=== PATIENT | female | born 1945 ===

== ENCOUNTER 2016-12-15 10:39 | Emergency (ER) | payer MEDICAID ==
[2016-12-15 10:44] VITALS: BP 114/62; PULSE 71; TEMP 97; O2SAT 99; BMI 27.8
--- NOTE | 2016-12-15 11:17 | ED PDOC ---
HPI: General Adult Time Seen by Provider: 12/15/16 11:00 Chief Complaint (Nursing): Abdominal Pain Chief Complaint (Provider): diarrhea, abd pain History Per: Patient, Associate Data Scientist (JACK Batres at bedside for translation) Additional Complaint(s): Patient states that she has had watery, non-bloody diarrhea for the past 2 days with mild associated abdominal pain. Patient denies any fever or chills, she denies any associated nausea or vomiting. Patient denies any consumption of food that could have caused stomach upset. No recent travel or known sick contacts. Patient was seen on November 29 for leg pain and had diarrhea and vomiting at that time. She states the vomiting has resolved at this point but the diarrhea has been persistent. Patient has been taking Keflex since November 29 secondary to right lower extremity cellulitis. Past Medical History Reviewed: Historical Data Vital Signs: Last Vital Signs Temp 97 F L 12/15/16 10:43 Pulse 71 12/15/16 10:43 Resp BP 114/62 12/15/16 10:43 Pulse Ox 99 12/15/16 15:30 - Medical History PMH: Anemia, COPD, Diabetes, Deep Vein Thrombosis, Gastritis, HIV, HTN, Hypercholesterolemia, Hyperlipidemia, Hypothyroidism, Chronic Kidney Disease - Surgical History Surgical History: Appendectomy Other surgeries: cataract surgery - Family History Family History: States: No Known Family Hx - Living Arrangements Living Arrangements: With Family - Social History Current smoker - smoking cessation education provided: No Alcohol: None Drugs: Denies - Home Medications Home Medications: Ambulatory Orders Medication Instructions Recorded Atorvastatin [Lipitor] 10 mg PO HS #0 tab 07/15/16 Enalapril Maleate [Vasotec] 5 mg PO DAILY #0 tab 07/15/16 Levothyroxine [Synthroid] 50 mcg PO DAILY #0 tab 07/15/16 Metformin HCl [Glucophage] 500 mg PO BID #0 tablet 07/15/16 Multivit, Iron, Min #5, FA 1 tab PO DAILY #0 tablet 07/15/16 [Strovite Forte Caplet] Emtricita/rilpivir/tenofovir 1 tab PO DAILY 10/08/16 [Complera 200 mg-25 mg-300 mg] Omeprazole 40 mg PO DAILY 10/08/16 Warfarin [Coumadin] 2 mg PO HS #0 10/18/16 Cephalexin [Keflex] 500 mg PO QID #28 capsule 11/30/16 Warfarin [Coumadin] 2 mg PO HS #14 tab 11/30/16 - Allergies Allergies/Adverse Reactions: Allergies Allergy/AdvReac Type Severity Reaction Status Date / Time No Known Allergies Allergy Verified 12/15/16 11:03 Review of Systems ROS Statement: Except As Marked, All Systems Reviewed And Found Negative Constitutional: Negative for: Fever, Chills Cardiovascular: Negative for: Chest Pain Respiratory: Negative for: Cough, Shortness of Breath Gastrointestinal: Positive for: Abdominal Pain, Diarrhea (watery, non bloody). Negative for: Nausea, Vomiting Neurological: Negative for: Headache, Dizziness Physical Exam - Reviewed Nursing Documentation Reviewed: Yes Vital Signs Reviewed: Yes - Physical Exam Appears: Positive for: Well, Non-toxic, No Acute Distress Skin: Negative for: Rash Cardiovascular/Chest: Positive for: Regular Rate, Rhythm Respiratory: Positive for: Normal Breath Sounds Gastrointestinal/Abdominal: Positive for: Soft, Tenderness (mild diffuse tenderness with no rebound or guarding, no distention) Back: Negative for: L CVA Tenderness, R CVA Tenderness Extremity: Positive for: Normal ROM, Other (Chronic venous stasis dermatitis to right lower extremity, no calf swelling or tenderness, normal distal sensation, no acute infection noted) Neurologic/Psych: Positive for: Alert, Oriented - Laboratory Results Result Diagrams: 12/15/16 11:45 12/15/16 11:45 Urine dip results: Negative for: Leukocyte Esterase, Blood, Nitrate, Ketones, Glucose, Bilirubin, Protein - ECG O2 Sat by Pulse Oximetry: 99 Pulse Ox Interpretation: Normal - Other Rad CT abd and pelvis X-Ray: Read By Radiologist X-Ray Interpretation: no acute finding Medical Decision Making Medical Decision Makin71 year old with diarrhea and abd pain Plan: CBC CMP Lipase U dip CT abd and pelvis with IV contrast Patient is aware of all diagnostic testing results, all questions answered. Communication with the patient was facilitated with JACK Batres, certified nursery attendant. Patient was given dietary instructions for relief of diarrhea and was instructed to drink plenty of fluids. Patient did not have bowel movement in ED, stool sample was unable to be ordered. She was referred to clinic for follow-up. Patient is aware she can return to ED any time if acutely worse. Disposition - Clinical Impression Clinical Impression: Diarrhea - Patient ED Disposition Is Patient to be Admitted: No Counseled Patient/Family Regarding: Studies Performed, Diagnosis, Need For Followup - Disposition Referrals: [facility] [Outside] Disposition: Routine/Home Disposition Time: 16:15 Condition: STABLE Additional Instructions: Drink plenty fluids. Follow BRAT diet - bananas, rice, apples, toast - for relief of diarrhea. Follow-up with clinic in 2-3 days or return to ED at any time if acutely worse. Instructions: Acute Diarrhea (ED) Print Language: NIUEAN Results - Lab Results Lab Results: 12/15/16 12/15/16 13:13 11:45 WBC 4.2 L RBC 3.85 Hgb 11.2 L Hct 34.3 MCV 89.1 D MCH 29.2 MCHC 32.8 L RDW 14.0 Plt Count 211 MPV 9.9 Neut % (Auto) 50.2 Lymph % (Auto) 39.1 Lucas % (Auto) 8.1 Eos % (Auto) 2.0 Baso % (Auto) 0.6 Neut # 2.1 Lymph # 1.6 Lucas # 0.3 Eos # 0.1 Baso # 0.0 PT 18.7 H INR 1.80 H APTT 35.5 H Sodium 141 Potassium 4.7 Chloride 101 Carbon Dioxide 26 Anion Gap 19 BUN 13 Creatinine 0.8 Est GFR ( Amer) > 60 Est GFR (Non-Af Amer) > 60 Random Glucose 148 H Calcium 9.3 Total Bilirubin 0.5 AST 44 H D ALT 32 Alkaline Phosphatase 91 Total Protein 7.5 Albumin 4.1 Globulin 3.4 Albumin/Globulin Ratio 1.2 Lipase 67
[2016-12-15] MEDS ORDERED: Sodium Chloride 0.9% 1,000 ML IV STA (11:28)
[2016-12-15 12:00] LABS: BASO % 0.6 % (0.0-2.0); EOS # 0.1 K/uL (0.0-0.7); HEMATOCRIT 34.3 % (34.0-47.0); LYMPH # 1.6 K/uL (1.0-4.3); LYMPH % 39.1 % (20.0-40.0); MEAN CORPUSCULAR HEMOGLOBIN 29.2 pg (27.0-31.0); MEAN CORPUSCULAR HGB CONC 32.8 g/dL (33.0-37.0); MEAN PLATELET VOLUME 9.9 fl (7.2-11.7); MONO # 0.3 K/uL (0.0-0.8); MONO % 8.1 % (0.0-10.0); NEUT # 2.1 K/uL (1.8-7.0); NEUT % 50.2 % (50.0-75.0); NRBC % 0.1 % (0.0-0.0); WHITE BLOOD COUNT 4.2 K/uL (4.8-10.8)
[2016-12-15 12:14] LABS: MEAN CELL VOLUME 89.1 fl (81.0-99.0)
[2016-12-15 12:26] LABS: ALB/GLOB RATIO 1.2 (1.0-2.1); ALKALINE PHOSPHATASE 91 U/L (38-126); ALT/SGPT 32 U/L (9-52); AST/SGOT 44 U/L (14-36); BILIRUBIN,TOTAL 0.5 mg/dl (0.2-1.3); BLOOD UREA NITROGEN 13 mg/dl (7-17); CALCIUM 9.3 mg/dL (8.4-10.2); CARBON DIOXIDE 26 mmol/L (22-30); CHLORIDE 101 mmol/L (98-107); GFR AFRICAN-AMERICAN > 60; GLUCOSE,RANDOM 148 mg/dL (65-105); LIPASE 67 U/L (23-300); POTASSIUM 4.7 MMOL/L (3.6-5.0); SODIUM 141 mmol/l (132-148); TOTAL PROTEIN 7.5 G/DL (6.3-8.2)
[2016-12-15 13:34] LABS: PARTIAL THROMBOPLASTIN TIME 35.5 SECONDS (23.3-32.5)
[2016-12-15] MEDS ORDERED: Iohexol 300 100 ML IJ ONE (15:26)
[2016-12-15] MEDS ORDERED: Sodium Chloride 0.9% 50 ML IV ONE (15:26)
--- NOTE | 2016-12-15 16:13 | CT ---
PROCEDURE: CT Abdomen and Pelvis with contrast HISTORY: abd pain, diarrhea COMPARISON: None. TECHNIQUE: Contrast dose: 90 cc of Omni 300 Radiation dose: Total exam DLP = 557 mGy-cm. FINDINGS: LOWER THORAX: Unremarkable. LIVER: Unremarkable. No gross lesion or ductal dilatation. GALLBLADDER AND BILE DUCTS: Unremarkable. PANCREAS: Unremarkable. No gross lesion or ductal dilatation. SPLEEN: Unremarkable. ADRENALS: Unremarkable. No mass. KIDNEYS AND URETERS: Unremarkable. No hydronephrosis. No solid mass. VASCULATURE: Unremarkable. No aortic aneurysm. The aorta is calcified but normal in size BOWEL: Unremarkable. No obstruction. No gross mural thickening. APPENDIX: Normal appendix. PERITONEUM: Unremarkable. No free fluid. No free air. LYMPH NODES: There is a 12 mm lymph node adjacent to the IVC and the right kidney on image 71. BLADDER: Unremarkable. REPRODUCTIVE: Unremarkable. BONES: There is a mild disc bulge at L4-5 OTHER FINDINGS: None. IMPRESSION: No acute intra-abdominal findings
== END 2016-12-15 16:35 | disposition home or self-care (01) ==
LOC: H.ER 10:39
DX: R19.7 Diarrhea, unspecified (principal); E11.22 Type 2 diabetes mellitus with diabetic chronic kidney disease; E78.00 Pure hypercholesterolemia, unspecified; Z79.01 Long term (current) use of anticoagulants; Z86.718 Personal history of other venous thrombosis and embolism

== ENCOUNTER 2017-01-12 09:57 | Inpatient (IN) | payer MEDICAID ==
[2017-01-12 09:57] VITALS: BMI 27.8
[2017-01-12] MEDS ORDERED: Piperacillin/Tazobact 3.375 GM in Sodium Chloride 0.9% 100 ML IVPB STA (11:40)
[2017-01-12] MEDS ORDERED: Piperacillin/Tazobact 3.375 gm Inj IVPB ONE (12:14)
[2017-01-12 12:21] LABS: VENOUS BLOOD GAS BASE EXCESS 2.4 mmol/L (0.0-2.0); VENOUS BLOOD GAS PCO2 51 mmHg (40-60); VENOUS BLOOD PH 7.36 (7.32-7.43)
--- NOTE | 2017-01-12 12:22 | ED PDOC ---
HPI: General Adult Time Seen by Provider: 01/12/17 10:28 Chief Complaint (Nursing): Lower Extremity Problem/Injury Additional Complaint(s): Pt. states for the past 3 days she's had increasing RLE pain and discharge. Reports she does have chronic pain to both legs but R > L. Reports that today she saw Dr. Morales who instructed her to come to ED. Pt. does have a hx of DVT to both legs. Denies fever, trauma, chest pain, SOB, hemoptysis, palpitations. Past Medical History Reviewed: Historical Data, Nursing Documentation, Vital Signs Vital Signs: Last Vital Signs Temp 98.7 F 01/12/17 16:59 Pulse 84 01/12/17 16:59 Resp 18 01/12/17 16:59 BP 135/70 01/12/17 16:59 Pulse Ox 98 01/12/17 16:59 - Medical History PMH: Anemia, COPD, Diabetes, Deep Vein Thrombosis, Fractures, Gastritis, HIV, HTN, Hypercholesterolemia, Hyperlipidemia, Hyperthyroidism, Hypothyroidism, Kidney Stones, Chronic Kidney Disease, Sexually Transmitted Disease Denies: Asthma, Bronchitis - Surgical History Surgical History: Appendectomy - Family History Family History: States: No Known Family Hx - Immunization History Hx Tetanus Toxoid Vaccination: Yes Hx Influenza Vaccination: Yes Hx Pneumococcal Vaccination: Yes - Home Medications Home Medications: Ambulatory Orders Medication Instructions Recorded Aspirin [Ecotrin] 81 mg PO DAILY 01/12/17 Atorvastatin [Lipitor] 10 mg PO DAILY 01/12/17 Cilostazol [Pletal] 50 mg PO DAILY 01/12/17 Emtricita/rilpivir/tenofovir 1 tab PO HS 01/12/17 [Complera 200 mg-25 mg-300 mg] Enalapril Maleate [Vasotec] 5 mg PO DAILY 01/12/17 Gabapentin [Neurontin] 300 mg PO BID 01/12/17 Levothyroxine [Synthroid] 50 mcg PO DAILY 01/12/17 Multivitamin [Multi-Vitamin Daily] 1 tab PO DAILY 01/12/17 Olopatadine HCl [Pataday] 1 drop EACHEYE BID 01/12/17 Omeprazole [Omeprazole] 20 mg PO DAILY 01/12/17 Warfarin [Coumadin] 2 mg PO HS 01/12/17 metFORMIN [glucOPHAGE] 500 mg PO BID 01/12/17 - Allergies Allergies/Adverse Reactions: Allergies Allergy/AdvReac Type Severity Reaction Status Date / Time No Known Allergies Allergy Verified 01/12/17 10:20 Review of Systems ROS Statement: Except As Marked, All Systems Reviewed And Found Negative Musculoskeletal: Positive for: Leg Pain Physical Exam - Reviewed Nursing Documentation Reviewed: Yes Vital Signs Reviewed: Yes - Physical Exam Appears: Positive for: Well, Non-toxic, No Acute Distress Head Exam: Positive for: ATRAUMATIC, NORMAL INSPECTION, NORMOCEPHALIC Skin: Positive for: Normal Color, Warm. Negative for: Rash Eye Exam: Positive for: EOMI, Normal appearance, PERRL ENT: Positive for: Normal ENT Inspection Neck: Positive for: Normal, Painless ROM Cardiovascular/Chest: Positive for: Regular Rate, Rhythm Respiratory: Positive for: CNT, Normal Breath Sounds Pulses-Dorsalis Pedis (L): 2+ Pulses-Dorsalis Pedis (R): 2+ Gastrointestinal/Abdominal: Positive for: Normal Exam, Bowel Sounds, Soft Back: Positive for: Normal Inspection Extremity: Positive for: Normal ROM, Other (RLE with diffuse erythema but non- circumferential with clear discharge noted; LLE with chronic changes but no erythema ). Negative for: Calf Tenderness Neurologic/Psych: Positive for: Alert, Oriented - Laboratory Results Result Diagrams: 01/12/17 12:00 01/12/17 12:00 - ECG O2 Sat by Pulse Oximetry: 96 - Progress ED Course And Treament: Case d/w Dr. Morales who states when he saw patient last week R leg had no erythema or discharge. Labs ordered. Zosyn IV, vancomycin IV ordered. Wound culture, blood culture ordered x 2. Duplex b/l lower extremity ordered. Case d/w FP resident and arrangements made for admission. Disposition - Clinical Impression Clinical Impression: Cellulitis - Patient ED Disposition Is Patient to be Admitted: Yes - Disposition Disposition Time: 17:34 Condition: STABLE
[2017-01-12 12:48] LABS: HEMATOCRIT 35.4 % (34.0-47.0); MEAN CELL VOLUME 89.3 fl (81.0-99.0); MEAN CORPUSCULAR HEMOGLOBIN 28.9 pg (27.0-31.0); MEAN CORPUSCULAR HGB CONC 32.4 g/dL (33.0-37.0); MEAN PLATELET VOLUME 9.4 fl (7.2-11.7); NEUT % 41.9 % (50.0-75.0); RED CELL DISTRIBUTION WIDTH 14.4 % (11.5-14.5); WHITE BLOOD COUNT 3.7 K/uL (4.8-10.8)
[2017-01-12 12:49] LABS: BASO % 0.8 % (0.0-2.0); EOS # 0.3 K/uL (0.0-0.7); EOS % 6.8 % (0.0-4.0); LYMPH # 1.6 K/uL (1.0-4.3); LYMPH % 42.2 % (20.0-40.0); MONO # 0.3 K/uL (0.0-0.8); MONO % 8.3 % (0.0-10.0); NEUT # 1.6 K/uL (1.8-7.0); NRBC % 0.1 % (0.0-0.0)
[2017-01-12 12:57] LABS: ALB/GLOB RATIO 1.1 (1.0-2.1); ALKALINE PHOSPHATASE 108 U/L (38-126); ALT/SGPT 27 U/L (9-52); AST/SGOT 57 U/L (14-36); BILIRUBIN,TOTAL 0.7 mg/dl (0.2-1.3); BLOOD UREA NITROGEN 14 mg/dl (7-17); CARBON DIOXIDE 25 mmol/L (22-30); CHLORIDE 102 mmol/L (98-107); GFR AFRICAN-AMERICAN > 60; GLUCOSE,RANDOM 102 mg/dL (65-105); SODIUM 138 mmol/l (132-148); TOTAL PROTEIN 8.5 G/DL (6.3-8.2)
[2017-01-12 13:01] LABS: POTASSIUM 4.4 MMOL/L (3.6-5.0)
[2017-01-12] MEDS ORDERED: Vancomycin 1 g Inj ONE (13:06)
--- NOTE | 2017-01-12 13:15 | RAD ---
HISTORY: Leg swelling COMPARISON: No prior. TECHNIQUE: Chest PA and lateral FINDINGS: LUNGS: There is pulmonary hyperinflation and peribronchial thickening with chronic changes in both lungs. There is no focal consolidation. PLEURA: No significant pleural effusion identified. No pneumothorax apparent. CARDIOVASCULAR: Normal. OSSEOUS STRUCTURES: No significant abnormalities. VISUALIZED UPPER ABDOMEN: Normal. OTHER FINDINGS: None. IMPRESSION: No active pulmonary disease. COPD.
--- NOTE | 2017-01-12 18:03 | CP.PCM.HP ---
History of Present Illness - History of Present Illness History of Present Illness: 71yo F with PMHx HIV, HTN, DM, Hypothyroidism, DVT, PVD, chronic venous insufficiency admitted for cellulitis in both lower ext. Seen by PCP today and transferred to ED for evaluation. c/o BLE pain, no radiation, duration x4 days, white d/c from E, a/w subjective fever, nausea, vomiting x2. Tolerating PO, denies current n/v. Denies chest pain, SOB, palpitations, focal weakness, recent trauma. Recent HIV labs 11/30/16, viral load undetectable, CD4 554. PMHx: as above Allergies: NKDA Surgical hx: Appendectomy FHx: Diabetes Mellitus Social Hx: former smoker quited 25 years ago. Denies EtOH, drugs. PMD: Dr Morales ED Course: VSS CBC, WBC 3.7 VBG pCO2/pO2/pH 51/21/7.36 LA 1.5 CMP, BNP U/S Extremety: No evidence of DVT Vanco 1g IV x1 Zosyn 3.375 mg IV x1 blood cx wound cx Present on Admission - Present on Admission Any Indicators Present on Admission: Yes History of DVT/PE: Yes Review of Systems - Constitutional Constitutional: absent: Chills, Fever - Cardiovascular Cardiovascular: absent: Chest Pain - Respiratory Respiratory: absent: Dyspnea - Gastrointestinal Gastrointestinal: absent: Abdominal Pain, Diarrhea, Nausea, Vomiting - Genitourinary Genitourinary: absent: Dysuria, Hematuria - Musculoskeletal Musculoskeletal: absent: Back Pain Past Patient History - Infectious Disease Hx of Infectious Diseases: None - Past Medical History & Family History Past Medical History?: Yes - Past Social History Smoking Status: Never Smoked - CARDIAC Hx Hypercholesterolemia: Yes Hx Hypertension: Yes - PULMONARY Hx Asthma: No Hx Bronchitis: No Hx Chronic Obstructive Pulmonary Disease (COPD): Yes - NEUROLOGICAL Hx Neurological Disorder: No - HEENT Hx HEENT Problems: No - RENAL Hx Chronic Kidney Disease: Yes Hx Kidney Stones: Yes - ENDOCRINE/METABOLIC Hx Hyperthyroidism: Yes Hx Hypothyroidism: Yes - HEMATOLOGICAL/ONCOLOGICAL Hx Anemia: Yes Hx Human Immunodeficiency Virus (HIV): Yes - INTEGUMENTARY Hx Dermatological Problems: No - MUSCULOSKELETAL/RHEUMATOLOGICAL Hx Fractures: Yes - GASTROINTESTINAL Hx Gastritis: Yes - GENITOURINARY/GYNECOLOGICAL Hx Sexually Transmitted Disorders: Yes - PSYCHIATRIC Hx Psychophysiologic Disorder: No Hx Substance Use: No - SURGICAL HISTORY Hx Appendectomy: Yes - ANESTHESIA Hx Anesthesia: Yes Hx Anesthesia Reactions: No Hx Malignant Hyperthermia: No Meds Allergies/Adverse Reactions: Allergies Allergy/AdvReac Type Severity Reaction Status Date / Time No Known Allergies Allergy Verified 01/12/17 10:20 Physical Exam - Constitutional Appears: Non-toxic, No Acute Distress - Eye Exam Eye Exam: Normal appearance - ENT Exam ENT Exam: Mucous Membranes Moist - Neck Exam Neck exam: Positive for: Normal Inspection - Respiratory Exam Respiratory Exam: Clear to Auscultation Bilateral - Cardiovascular Exam Cardiovascular Exam: REGULAR RHYTHM - GI/Abdominal Exam GI & Abdominal Exam: Normal Bowel Sounds, Soft - Extremities Exam Extremities exam: Positive for: tenderness, pedal pulses present Additional comments: RLE erythema, minimal induration, no fluctuance, no drainage. area marked includes erythema and chronic skin changes - Neurological Exam Neurological exam: Alert, Oriented x3 - Skin Skin Exam: Dry, Warm Results - Vital Signs Recent Vital Signs: Last Vital Signs Temp 98.7 F 01/12/17 16:59 Pulse 84 01/12/17 16:59 Resp 18 01/12/17 16:59 BP 135/70 01/12/17 16:59 Pulse Ox 98 01/12/17 16:59 - Labs Result Diagrams: 01/12/17 12:00 01/12/17 12:00 Labs: Laboratory Results - last 24 hr 01/12/17 01/12/17 01/12/17 12:00 12:00 12:16 WBC 3.7 L RBC 3.96 Hgb 11.5 L Hct 35.4 MCV 89.3 MCH 28.9 MCHC 32.4 L RDW 14.4 Plt Count 237 MPV 9.4 Neut % (Auto) 41.9 L Lymph % (Auto) 42.2 H [place] % (Auto) 8.3 Eos % (Auto) 6.8 H Baso % (Auto) 0.8 Neut # 1.6 L Lymph # 1.6 [place] # 0.3 Eos # 0.3 Baso # 0.0 pO2 21 L VBG pH 7.36 VBG pCO2 51 VBG HCO3 25.0 VBG Total CO2 30.4 H VBG O2 Sat (Calc) 41.4 VBG Base Excess 2.4 H VBG Potassium 3.9 Glucose 107 H Lactate 1.5 FiO2 21.0 Sodium 138 139.0 Potassium 4.4 Chloride 102 104.0 Carbon Dioxide 25 Anion Gap 15 BUN 14 Creatinine 0.8 Est GFR ( Amer) > 60 Est GFR (Non-Af Amer) > 60 Random Glucose 102 Calcium 10.0 Total Bilirubin 0.7 AST 57 H D ALT 27 Alkaline Phosphatase 108 NT-Pro-B Natriuret Pep 81.7 Total Protein 8.5 H Albumin 4.4 Globulin 4.1 H Albumin/Globulin Ratio 1.1 Venous Blood Potassium 3.9 Assessment & Plan - Assessment and Plan (Free Text) Assessment: 70 yo female with pmhx of HIV, chronic PVD, diabetes will be admitted for right lower ext cellulitis. 1) Right lower ext cellulitis -Hx/o stasis dermatitis and chronic venous insufficiency -vancomycin 1gm q12 & zosyn 3.375gm q6 daily -b/l ext US : No DVT -f/u blood cx, wound cx -marked area with marker 2)Peripheral vascular disease -pletal 3)HIV, not AIDS -11/30/16: CD4 554, viral load undetected -c/w complera 4)Type 2 diabetes, controlled -11/30/16 HgbA1c 7 -accuchecks -hold metformin -LDSS 5) HTN, controlled -c/w enalapril 6)Hypothyroidism -11/30/16 TSH 0.79 -c/w levothyroxine 7)hx of GERD -c/w protonix 20mg po daily 8) hx of DVT -c/w warfarin 2mg po daily -PT/INR/PTT 9) HLD -statin 10) DVT ppx -coumadin Decision To Admit - Pt Status Changed To: Hospital Disposition Of: Observation - . Bed Request Type: Med/Surg Admitting Physician: Malia Clay
--- NOTE | 2017-01-12 18:35 | US ---
PROCEDURE: Bilateral lower extremity venous duplex Doppler. HISTORY: b/l leg pain COMPARISON: None available. TECHNIQUE: Bilateral common femoral, superficial femoral, popliteal and posterior tibial veins were evaluated. Flow was assessed with color Doppler, compressibility, assessment of phasic flow and augmentation response. FINDINGS: COMMON FEMORAL VEIN: Right CFV: Unremarkable. Left CFV: Unremarkable. SUPERFICIAL FEMORAL VEIN: Right SFV: Unremarkable. Left SFV: Unremarkable. POPLITEAL VEIN: Right Popliteal: Unremarkable. Left Popliteal: Unremarkable. POSTERIOR TIBIAL VEIN: Right PTV: Unremarkable. Left PTV: Unremarkable. OTHER FINDINGS: None. IMPRESSION: No evidence of deep venous thrombosis.
[2017-01-12] MEDS ORDERED: Dextrose 50% SYRINGE Inj (50 ml) IVP PRN (18:40)
[2017-01-12] MEDS ORDERED: Glucagon Recombinant 1 mg Inj IM PRN ×2 (18:40)
[2017-01-12] MEDS ORDERED: Dextrose 50% SYRINGE Inj (50 ml) IV PRN (18:40)
[2017-01-12 20:20] LABS: PARTIAL THROMBOPLASTIN TIME 35.3 SECONDS (23.3-32.5)
[2017-01-12] MEDS ORDERED: COMPLERA PO SCH (22:00)
[2017-01-12] MEDS: Insulin Regular 100 units/ml SC SCH (22:00)
[2017-01-12] MEDS: Oxycodone/Acetaminophen 5/325 mg Tab PO PRN (23:36)
[2017-01-12] MEDS: Piperacillin/Tazobact 3.375 GM in Sodium Chloride 0.9% 100 ML IVPB SCH (23:38)
[2017-01-13] MEDS: Piperacillin/Tazobact 3.375 GM in Sodium Chloride 0.9% 100 ML IVPB SCH ×4 (04:38→22:03)
[2017-01-13] MEDS: Levothyroxine 50 MCG TAB PO SCH (06:25)
[2017-01-13] MEDS: Insulin Regular 100 units/ml SC SCH ×4 (06:29→22:04)
[2017-01-13 08:08] LABS: BASO % 0.8 % (0.0-2.0); EOS # 0.3 K/uL (0.0-0.7); EOS % 7.9 % (0.0-4.0); HEMATOCRIT 35.2 % (34.0-47.0); LYMPH # 1.5 K/uL (1.0-4.3); LYMPH % 45.9 % (20.0-40.0); MEAN CORPUSCULAR HEMOGLOBIN 28.4 pg (27.0-31.0); MEAN CORPUSCULAR HGB CONC 32.3 g/dL (33.0-37.0); MEAN PLATELET VOLUME 9.2 fl (7.2-11.7); MONO # 0.3 K/uL (0.0-0.8); MONO % 10.2 % (0.0-10.0); NEUT # 1.1 K/uL (1.8-7.0); NEUT % 35.2 % (50.0-75.0); RED CELL DISTRIBUTION WIDTH 14.3 % (11.5-14.5); WHITE BLOOD COUNT 3.2 K/uL (4.8-10.8)
--- NOTE | 2017-01-13 08:15 | CP.PCM.PN ---
Subjective - Date & Time of Evaluation Date of Evaluation: 01/13/17 Time of Evaluation: 07:05 - Subjective Subjective: The patient is a 71 y/o woman w/ PMHx of HIV (not AIDS), HTN, DM type 2, Hypothyroidism, DVT, PVD, chronic venous insufficiency admitted for cellulitis in both lower extremities. The patient was seen this morning. There are no acute events overnight. The patient is not in acute distress. The patient reports improvement of pain in her legs. The patient complains of back pain. The patient goes out of bed to chair. The patient has no other complaints. Objective - Vital Signs/Intake and Output Vital Signs (last 24 hours): Temp Pulse Resp BP Pulse Ox 97.9 F 66 16 123/86 97 01/12/17 21:31 01/12/17 21:31 01/12/17 21:31 01/12/17 21:31 01/12/17 21:31 - Medications Medications: Current Medications Acetaminophen (Tylenol 325mg Tab) 650 mg PO Q6 PRN PRN Reason: Pain, Mild (1-3) Aspirin (Ecotrin) 81 mg PO DAILY [facility] Atorvastatin Calcium (Lipitor) 10 mg PO DAILY [facility] Cilostazol (Pletal) 50 mg PO DAILY [facility] Dextrose (Dextrose 50% Inj) 0 ml IVP STAT PRN; Protocol PRN Reason: Hypoglycemia Protocol Dextrose (Dextrose 50% Inj) 0 ml IV STAT PRN; Protocol PRN Reason: Hyglycemia Protocol Dextrose (Glutose 15) 0 gm PO ONCE PRN; Protocol PRN Reason: Hypoglycemia Protocol Enalapril Maleate (Vasotec) 5 mg PO DAILY [facility] Gabapentin (Neurontin) 300 mg PO BID [facility] Glucagon (Glucagen Diagnostic Kit) 0 mg IM STAT PRN; Protocol PRN Reason: Hypoglycemia Protocol Glucagon (Glucagen Diagnostic Kit) 0 mg IM STAT PRN; Protocol PRN Reason: Hypoglycemia Protocol Home Med (Emtricita/Rilpivir/Tenofovir) 1 tab PO HS [facility] Home Med (Olopatadine Hcl [Pataday]) 1 drop EACHEYE BID BABAR Piperacillin Sod/Tazobactam (Sod 3.375 gm/ Sodium Chloride) 100 mls @ 100 mls/ hr IVPB Q6 [facility] Last Admin: 01/13/17 04:38 Dose: 100 mls/hr Vancomycin HCl 1 gm/ Sodium (Chloride) 250 mls @ 166.667 mls/hr IVPB Q12@0100, 1300 [facility] Last Admin: 01/13/17 00:43 Dose: 166.667 mls/hr Insulin Human Regular (Humulin R) 0 units SC ACHS [facility] PRN Reason: Protocol Last Admin: 01/13/17 06:29 Dose: Not Given Levothyroxine Sodium (Synthroid) 50 mcg PO DAILY@0630 [facility] Last Admin: 01/13/17 06:25 Dose: 50 mcg Multivitamins/Minerals (Therapeutic-M Tab) 1 tab PO DAILY [facility] Oxycodone/Acetaminophen (Percocet 5/325 Mg Tab) 1 tab PO Q6 PRN PRN Reason: Pain, severe (8-10) Stop: 01/15/17 22:48 Last Admin: 01/12/17 23:36 Dose: 1 tab Pantoprazole Sodium (Protonix Ec Tab) 20 mg PO DAILY [facility] Tramadol HCl (Ultram) 50 mg PO Q6 PRN PRN Reason: Pain, moderate (4-7) - Labs Labs: PT 18.7 SECONDS (9.6-11.2) H 01/12/17 19:39 INR 1.80 (0.92-1.08) H 01/12/17 19:39 APTT 35.3 SECONDS (23.3-32.5) H 01/12/17 19:39 - Constitutional Appears: No Acute Distress - Head Exam Head Exam: ATRAUMATIC, NORMOCEPHALIC - ENT Exam ENT Exam: Mucous Membranes Moist - Respiratory Exam Respiratory Exam: Clear to Ausculation Bilateral. absent: Accessory Muscle Use , Chest Wall Tenderness, Decreased Breath Sounds, Prolonged Expiratory Phase, Rales, Rhonchi, Wheezes, Respiratory Distress, Stridor - Cardiovascular Exam Cardiovascular Exam: REGULAR RHYTHM. absent: Tachycardia - GI/Abdominal Exam GI & Abdominal Exam: Soft, Normal Bowel Sounds. absent: Distended, Tenderness - Extremities Exam Extremities Exam: Tenderness Additional comments: right leg with chronic venous stasis changes, less erythema than yesterday, receded from marker drawing, mild tenderness, less edema left leg with chronic venous stasis changes, no erythema, mild tenderness - Back Exam Additional comments: lower back tenderness - Neurological Exam Neurological Exam: Alert, Awake, Oriented x3 - Skin Skin Exam: Dry, Intact, Warm Assessment and Plan - Assessment and Plan (Free Text) Assessment: The patient is a 71 y/o woman w/ PMHx of HIV (not AIDS), HTN, DM type 2, Hypothyroidism, DVT, PVD, chronic venous insufficiency admitted for cellulitis in both lower extremities Plan: 1) Right lower extremity cellulitis - history of stasis dermatitis and chronic venous insufficiency - vancomycin 1 gm IV Q12h - zosyn 3.375 gm IV Q6h - bilateral lower extremity U/S: No DVT - follow up blood cx, wound cx - marked area with marker; recession of erythema 2) Peripheral vascular disease - cilostazol 50 mg PO daily 3) HIV, not AIDS - CD4 11/30/16: 554 - viral load 11/30/2016: undetected - continue with complera 4) Type 2 diabetes, controlled - HgbA1c 11/30/16: 7% - accuchecks - hold metformin 500 mg PO BID - LDSS - hypoglycemia protocol 5) HTN, controlled - continue with enalapril 5 mg PO daily 6) Hypothyroidism - TSH 11/30/16: 0.79 - continue with levothyroxine 50 mcg PO daily 7) History of GERD - continue with protonix 20mg PO daily 8) History of DVT - continue with warfarin 2 mg PO daily - PT: 18.7 - INR: 1.80 - follow up PT/INR/PTT 9) HLD - continue with atorvastatin 10 mg PO daily 10) DVT prophylaxis - warfarin 2 mg PO daily
[2017-01-13 08:32] LABS: BLOOD UREA NITROGEN 15 mg/dl (7-17); CALCIUM 9.3 mg/dL (8.4-10.2); CARBON DIOXIDE 25 mmol/L (22-30); CHLORIDE 103 mmol/L (98-107); GFR AFRICAN-AMERICAN > 60; GLUCOSE,RANDOM 127 mg/dL (65-105); POTASSIUM 4.1 MMOL/L (3.6-5.0); SODIUM 137 mmol/l (132-148)
[2017-01-13 08:35] LABS: PARTIAL THROMBOPLASTIN TIME 35.2 SECONDS (23.3-32.5)
[2017-01-13] MEDS: Multivitamin With Minerals Tab PO SCH (08:50)
[2017-01-13] MEDS: Cilostazol 50 mg Tab UD PO SCH (08:50)
[2017-01-13] MEDS: Pantoprazole 20 mg EC Tab PO SCH (08:50)
[2017-01-13] MEDS: Oxycodone/Acetaminophen 5/325 mg Tab PO PRN (08:57)
[2017-01-13] MEDS: Lidocaine 5% Patch TD SCH (12:09)
[2017-01-14] MEDS: Piperacillin/Tazobact 3.375 GM in Sodium Chloride 0.9% 100 ML IVPB SCH ×4 (03:24→21:39)
[2017-01-14] MEDS: Levothyroxine 50 MCG TAB PO SCH (06:29)
[2017-01-14] MEDS: Insulin Regular 100 units/ml SC SCH ×4 (06:30→21:41)
[2017-01-14] MEDS: Multivitamin With Minerals Tab PO SCH (08:10)
[2017-01-14] MEDS: Cilostazol 50 mg Tab UD PO SCH (08:11)
[2017-01-14] MEDS: Pantoprazole 20 mg EC Tab PO SCH (08:12)
[2017-01-14] MEDS: Lidocaine 5% Patch TD SCH (08:12)
[2017-01-14] MEDS: Olopatadine 0.1% Opht SOLN OU SCH ×2 (11:19→16:01)
--- NOTE | 2017-01-14 12:50 | CP.PCM.PN ---
Subjective - Date & Time of Evaluation Date of Evaluation: 01/14/17 Time of Evaluation: 08:30 - Subjective Subjective: Pt seen sitting up eating breakfast. States she is feeling silghtly better, with mild improvement of pain, but c/o heaviness in her legs. Denies fever, chills, N/V/D or abdominal pain. Denies chest pain or SOB. Pt reports sleeping well and reports good appetite. Last BM this morning. Pt's daughter came yesterday evening and brought pt's Complera from home. Objective - Vital Signs/Intake and Output Vital Signs (last 24 hours): Temp Pulse Resp BP Pulse Ox 97.6 F 71 20 116/72 96 01/14/17 07:35 01/14/17 10:41 01/14/17 07:35 01/14/17 07:35 01/14/17 10:41 - Medications Medications: Current Medications Acetaminophen (Tylenol 325mg Tab) 650 mg PO Q6 PRN PRN Reason: Pain, Mild (1-3) Aspirin (Ecotrin) 81 mg PO DAILY [facility] Last Admin: 01/14/17 08:11 Dose: 81 mg Atorvastatin Calcium (Lipitor) 10 mg PO DAILY [facility] Last Admin: 01/14/17 08:11 Dose: 10 mg Cilostazol (Pletal) 50 mg PO DAILY [facility] Last Admin: 01/14/17 08:11 Dose: 50 mg Dextrose (Dextrose 50% Inj) 0 ml IVP STAT PRN; Protocol PRN Reason: Hypoglycemia Protocol Dextrose (Dextrose 50% Inj) 0 ml IV STAT PRN; Protocol PRN Reason: Hyglycemia Protocol Dextrose (Glutose 15) 0 gm PO ONCE PRN; Protocol PRN Reason: Hypoglycemia Protocol Enalapril Maleate (Vasotec) 5 mg PO DAILY [facility] Last Admin: 01/14/17 08:11 Dose: 5 mg Gabapentin (Neurontin) 300 mg PO BID [facility] Last Admin: 01/14/17 08:11 Dose: 300 mg Glucagon (Glucagen Diagnostic Kit) 0 mg IM STAT PRN; Protocol PRN Reason: Hypoglycemia Protocol Glucagon (Glucagen Diagnostic Kit) 0 mg IM STAT PRN; Protocol PRN Reason: Hypoglycemia Protocol Home Med (Emtricita/Rilpivir/Tenofovir) 1 tab PO HS [facility] Piperacillin Sod/Tazobactam (Sod 3.375 gm/ Sodium Chloride) 100 mls @ 100 mls/ hr IVPB Q6 [facility] Last Admin: 01/14/17 09:28 Dose: 100 mls/hr Vancomycin HCl 1 gm/ Sodium (Chloride) 250 mls @ 166.667 mls/hr IVPB Q12@0100, 1300 [facility] Last Admin: 01/14/17 12:10 Dose: 166.667 mls/hr Insulin Human Regular (Humulin R) 0 units SC ACHS [facility] PRN Reason: Protocol Last Admin: 01/14/17 11:20 Dose: 2 units Levothyroxine Sodium (Synthroid) 50 mcg PO DAILY@0630 [facility] Last Admin: 01/14/17 06:29 Dose: 50 mcg Lidocaine (Lidoderm) 1 ea TD DAILY [facility] Last Admin: 01/14/17 08:12 Dose: 1 ea Multivitamins/Minerals (Therapeutic-M Tab) 1 tab PO DAILY [facility] Last Admin: 01/14/17 08:10 Dose: 1 tab Olopatadine HCl (Patanol 0.1% Opht Soln) 1 drop OU BID [facility] Last Admin: 01/14/17 11:19 Dose: Not Given Oxycodone/Acetaminophen (Percocet 5/325 Mg Tab) 1 tab PO Q6 PRN PRN Reason: Pain, severe (8-10) Stop: 01/15/17 22:48 Last Admin: 01/13/17 08:57 Dose: 1 tab Pantoprazole Sodium (Protonix Ec Tab) 20 mg PO DAILY [facility] Last Admin: 01/14/17 08:12 Dose: 20 mg Tramadol HCl (Ultram) 50 mg PO Q6 PRN PRN Reason: Pain, moderate (4-7) Warfarin Sodium (Coumadin) 2 mg PO QD5 [facility] PRN Reason: Protocol Stop: 01/14/17 17:01 - Labs Labs: PT 20.3 SECONDS (9.6-11.2) H 01/14/17 05:30 INR 1.95 (0.92-1.08) H 01/14/17 05:30 APTT 35.2 SECONDS (23.3-32.5) H 01/13/17 07:45 - Constitutional Appears: Non-toxic, No Acute Distress - Head Exam Head Exam: NORMAL INSPECTION - Eye Exam Eye Exam: EOMI, Normal appearance - ENT Exam ENT Exam: Mucous Membranes Moist - Respiratory Exam Respiratory Exam: Clear to Ausculation Bilateral, NORMAL BREATHING PATTERN - Cardiovascular Exam Cardiovascular Exam: REGULAR RHYTHM - GI/Abdominal Exam GI & Abdominal Exam: Soft, Normal Bowel Sounds. absent: Tenderness - Extremities Exam Additional comments: right leg with chronic venous stasis changes, area of edema, erythema and warmth continues to recede from marker drawing; mild tenderness to palpation left leg with chronic venous stasis changes, no erythema, no tenderness. faint pulses b/l - Back Exam Back Exam: NORMAL INSPECTION, paraspinal tenderness (lumbar) - Neurological Exam Neurological Exam: Alert, Oriented x3 - Psychiatric Exam Psychiatric exam: Normal Mood Assessment and Plan - Assessment and Plan (Free Text) Assessment: 1) Right lower extremity MRSA cellulitis - vancomycin 1 gm IV Q12h - zosyn 3.375 gm IV Q6h - bilateral lower extremity U/S: No DVT - blood culture - no growth thus far - wound cx - MRSA -contact isolation - f/u vanc trough 2) Peripheral vascular disease - cilostazol 50 mg PO daily 3) HIV, not AIDS - CD4 11/30/16: 554 - viral load 11/30/2016: undetected - continue with complera 4) Type 2 diabetes, controlled - HgbA1c 11/30/16: 7% - accuchecks, hypoglycemia protocol - hold metformin - LDSS 5) HTN, controlled - continue with enalapril 5 mg PO daily 6) Hypothyroidism - TSH 11/30/16: 0.79 - continue with levothyroxine 50 mcg PO daily 7) History of GERD - continue with protonix 20mg PO daily 8) History of DVT - INR: 1.95 - c/w warfarin 2mg PO daily - monitor INRs 9) HLD - continue with atorvastatin 10 mg PO daily 10) DVT prophylaxis - warfarin 2 mg PO daily -SCD on Left leg
[2017-01-14] MEDS: Oxycodone/Acetaminophen 5/325 mg Tab PO PRN (13:35)
[2017-01-15] MEDS: Piperacillin/Tazobact 3.375 GM in Sodium Chloride 0.9% 100 ML IVPB SCH ×2 (04:30→10:14)
[2017-01-15] MEDS: Insulin Regular 100 units/ml SC SCH ×2 (06:43→12:15)
[2017-01-15] MEDS: Levothyroxine 50 MCG TAB PO SCH (06:45)
[2017-01-15 07:34] VITALS: BP 117/69; PULSE 70; RESP 18; TEMP 97.4; O2SAT 98
--- NOTE | 2017-01-15 09:16 | CP.PCM.PN ---
Subjective - Date & Time of Evaluation Date of Evaluation: 01/15/17 Time of Evaluation: 07:50 - Subjective Subjective: The patient is a 71 y/o woman w/ PMHx of HIV (not AIDS), HTN, DM type 2, Hypothyroidism, DVT, PVD, chronic venous insufficiency admitted for cellulitis in both lower extremities. The patient was seen this morning. There are no acute events overnight. The patient is not in acute distress. The patient reports improvement of pain in her right leg. The patient reports that there was some drainage yesterday but this morning the leg was dry. The patient goes out of bed to chair. The patient has no other complaints. Objective - Vital Signs/Intake and Output Vital Signs (last 24 hours): Temp Pulse Resp BP Pulse Ox 97.4 F L 70 18 117/69 98 01/15/17 07:33 01/15/17 07:33 01/15/17 07:33 01/15/17 07:33 01/15/17 07:33 - Medications Medications: Current Medications Acetaminophen (Tylenol 325mg Tab) 650 mg PO Q6 PRN PRN Reason: Pain, Mild (1-3) Aspirin (Ecotrin) 81 mg PO DAILY [facility] Last Admin: 01/14/17 08:11 Dose: 81 mg Atorvastatin Calcium (Lipitor) 10 mg PO DAILY [facility] Last Admin: 01/14/17 08:11 Dose: 10 mg Cilostazol (Pletal) 50 mg PO DAILY [facility] Last Admin: 01/14/17 08:11 Dose: 50 mg Dextrose (Dextrose 50% Inj) 0 ml IVP STAT PRN; Protocol PRN Reason: Hypoglycemia Protocol Dextrose (Dextrose 50% Inj) 0 ml IV STAT PRN; Protocol PRN Reason: Hyglycemia Protocol Dextrose (Glutose 15) 0 gm PO ONCE PRN; Protocol PRN Reason: Hypoglycemia Protocol Enalapril Maleate (Vasotec) 5 mg PO DAILY [facility] Last Admin: 01/14/17 08:11 Dose: 5 mg Gabapentin (Neurontin) 300 mg PO BID [facility] Last Admin: 01/14/17 16:00 Dose: 300 mg Glucagon (Glucagen Diagnostic Kit) 0 mg IM STAT PRN; Protocol PRN Reason: Hypoglycemia Protocol Glucagon (Glucagen Diagnostic Kit) 0 mg IM STAT PRN; Protocol PRN Reason: Hypoglycemia Protocol Home Med (Emtricita/Rilpivir/Tenofovir) 1 tab PO HS [facility] Last Admin: 01/14/17 21:39 Dose: 1 tab Piperacillin Sod/Tazobactam (Sod 3.375 gm/ Sodium Chloride) 100 mls @ 100 mls/ hr IVPB Q6 [facility] Last Admin: 01/15/17 04:30 Dose: 100 mls/hr Vancomycin HCl 1 gm/ Sodium (Chloride) 250 mls @ 166.667 mls/hr IVPB Q12@0100, 1300 [facility] Last Admin: 01/15/17 00:01 Dose: 166.667 mls/hr Insulin Human Regular (Humulin R) 0 units SC ACHS [facility] PRN Reason: Protocol Last Admin: 01/15/17 06:43 Dose: Not Given Levothyroxine Sodium (Synthroid) 50 mcg PO DAILY@0630 [facility] Last Admin: 01/15/17 06:45 Dose: 50 mcg Lidocaine (Lidoderm) 1 ea TD DAILY [facility] Last Admin: 01/14/17 08:12 Dose: 1 ea Multivitamins/Minerals (Therapeutic-M Tab) 1 tab PO DAILY [facility] Last Admin: 01/14/17 08:10 Dose: 1 tab Olopatadine HCl (Patanol 0.1% Opht Soln) 1 drop OU BID [facility] Last Admin: 01/14/17 16:01 Dose: 1 drop Oxycodone/Acetaminophen (Percocet 5/325 Mg Tab) 1 tab PO Q6 PRN PRN Reason: Pain, severe (8-10) Stop: 01/15/17 22:48 Last Admin: 01/15/17 00:00 Dose: 1 tab Pantoprazole Sodium (Protonix Ec Tab) 20 mg PO DAILY [facility] Last Admin: 01/14/17 08:12 Dose: 20 mg Tramadol HCl (Ultram) 50 mg PO Q6 PRN PRN Reason: Pain, moderate (4-7) - Labs Labs: PT 23.3 SECONDS (9.6-11.2) H 01/15/17 06:30 INR 2.24 (0.92-1.08) H 01/15/17 06:30 APTT 35.2 SECONDS (23.3-32.5) H 01/13/17 07:45 - Constitutional Appears: No Acute Distress - Head Exam Head Exam: ATRAUMATIC, NORMOCEPHALIC - ENT Exam ENT Exam: Mucous Membranes Moist - Respiratory Exam Respiratory Exam: Clear to Ausculation Bilateral. absent: Accessory Muscle Use , Chest Wall Tenderness, Decreased Breath Sounds, Prolonged Expiratory Phase, Rales, Rhonchi, Wheezes, Respiratory Distress, Stridor - Cardiovascular Exam Cardiovascular Exam: REGULAR RHYTHM. absent: Tachycardia - GI/Abdominal Exam GI & Abdominal Exam: Soft, Normal Bowel Sounds. absent: Distended, Tenderness - Extremities Exam Extremities Exam: absent: Calf Tenderness Additional comments: right leg with chronic venous stasis changes; edema, erythema and warmth significantly receded from marker drawing; mild tenderness to palpation left leg with chronic venous stasis changes, no erythema, no tenderness. faint DP, PT pulses bilaterally - Neurological Exam Neurological Exam: Alert, Awake, Oriented x3 - Skin Skin Exam: Dry, Intact, Warm Assessment and Plan - Assessment and Plan (Free Text) Assessment: The patient is a 71 y/o woman w/ PMHx of HIV (not AIDS), HTN, DM type 2, Hypothyroidism, DVT, PVD, chronic venous insufficiency admitted for cellulitis in both lower extremities Plan: 1) Right lower extremity MRSA cellulitis - Day 3: vancomycin 1 gm IV Q12h - Day 3: zosyn 3.375 gm IV Q6h - bilateral lower extremity U/S: No DVT - blood culture - no growth thus far - wound cx - MRSA -contact isolation - vanc trough: 14.3 2) Peripheral vascular disease - cilostazol 50 mg PO daily 3) Pain Management - lidocaine 5% patch daily - percocet 1 tab PO Q6h 4) HIV, not AIDS - CD4 11/30/16: 554 - viral load 11/30/2016: undetected - continue with complera 5) Type 2 diabetes, controlled - HgbA1c 11/30/16: 7% - accuchecks, hypoglycemia protocol - hold metformin - LDSS 6) HTN, controlled - continue with enalapril 5 mg PO daily 7) Hypothyroidism - TSH 11/30/16: 0.79 - continue with levothyroxine 50 mcg PO daily 8) History of GERD - continue with protonix 20mg PO daily 9) History of DVT - INR: 2.24 - continue with warfarin 2mg PO daily - monitor INRs 10) HLD - continue with atorvastatin 10 mg PO daily 10) DVT prophylaxis - warfarin 2 mg PO daily - SCD ordered for left leg
[2017-01-15] MEDS: Lidocaine 5% Patch TD SCH (10:10)
[2017-01-15] MEDS: Cilostazol 50 mg Tab UD PO SCH (10:11)
[2017-01-15] MEDS: Pantoprazole 20 mg EC Tab PO SCH (10:12)
[2017-01-15] MEDS: Olopatadine 0.1% Opht SOLN OU SCH (10:13)
[2017-01-15] MEDS: Multivitamin With Minerals Tab PO SCH (10:13)
[2017-01-15] MEDS: Oxycodone/Acetaminophen 5/325 mg Tab PO PRN ×2 (10:24)
--- NOTE | 2017-01-15 13:25 | CP.PCM.DIS ---
Provider - Provider Date of Admission: 01/13/17 11:18 Attending physician: Danii Rodríguez MD Primary care physician: Kev Cerda MD Time Spent in preparation of Discharge (in minutes): 30 Diagnosis - Discharge Diagnosis (1) Cellulitis of right lower extremity Status: Acute Hospital Course - Lab Results Lab Results: Most Recent Lab Values WBC 3.2 K/uL (4.8-10.8) L 01/13/17 07:45 RBC 4.00 Mil/uL (3.80-5.20) 01/13/17 07:45 Hgb 11.4 g/dL (12.0-16.0) L 01/13/17 07:45 Hct 35.2 % (34.0-47.0) 01/13/17 07:45 MCV 88.0 fl (81.0-99.0) 01/13/17 07:45 MCH 28.4 pg (27.0-31.0) 01/13/17 07:45 MCHC 32.3 g/dL (33.0-37.0) L 01/13/17 07:45 RDW 14.3 % (11.5-14.5) 01/13/17 07:45 Plt Count 225 K/uL (130-400) 01/13/17 07:45 MPV 9.2 fl (7.2-11.7) 01/13/17 07:45 Neut % (Auto) 35.2 % (50.0-75.0) L 01/13/17 07:45 Lymph % (Auto) 45.9 % (20.0-40.0) H 01/13/17 07:45 [place] % (Auto) 10.2 % (0.0-10.0) H 01/13/17 07:45 Eos % (Auto) 7.9 % (0.0-4.0) H 01/13/17 07:45 Baso % (Auto) 0.8 % (0.0-2.0) 01/13/17 07:45 Neut # 1.1 K/uL (1.8-7.0) L 01/13/17 07:45 Lymph # 1.5 K/uL (1.0-4.3) 01/13/17 07:45 [place] # 0.3 K/uL (0.0-0.8) 01/13/17 07:45 Eos # 0.3 K/uL (0.0-0.7) 01/13/17 07:45 Baso # 0.0 K/uL (0.0-0.2) 01/13/17 07:45 PT 23.3 SECONDS (9.6-11.2) H 01/15/17 06:30 INR 2.24 (0.92-1.08) H 01/15/17 06:30 APTT 35.2 SECONDS (23.3-32.5) H 01/13/17 07:45 pO2 21 mm/Hg (30-55) L 01/12/17 12:16 VBG pH 7.36 (7.32-7.43) 01/12/17 12:16 VBG pCO2 51 mmHg (40-60) 01/12/17 12:16 VBG HCO3 25.0 mmol/L 01/12/17 12:16 VBG Total CO2 30.4 mmol/L (22-28) H 01/12/17 12:16 VBG O2 Sat (Calc) 41.4 % (40-65) 01/12/17 12:16 VBG Base Excess 2.4 mmol/L (0.0-2.0) H 01/12/17 12:16 VBG Potassium 3.9 mmol/L (3.6-5.2) 01/12/17 12:16 Sodium 139.0 mmol/L (132-148) 01/12/17 12:16 Chloride 104.0 mmol/L (98-107) 01/12/17 12:16 Glucose 107 mg/dL (65-105) H 01/12/17 12:16 Lactate 1.5 mmol/L (0.7-2.1) 01/12/17 12:16 FiO2 21.0 % 01/12/17 12:16 Sodium 137 mmol/l (132-148) 01/13/17 07:45 Potassium 4.1 MMOL/L (3.6-5.0) 01/13/17 07:45 Chloride 103 mmol/L (98-107) 01/13/17 07:45 Carbon Dioxide 25 mmol/L (22-30) 01/13/17 07:45 Anion Gap 13 (10-20) 01/13/17 07:45 BUN 15 mg/dl (7-17) 01/13/17 07:45 Creatinine 1.0 mg/dL (0.7-1.2) 01/13/17 07:45 Est GFR ( Amer) > 60 01/13/17 07:45 Est GFR (Non-Af Amer) 55 01/13/17 07:45 POC Glucose (mg/dL) 229 mg/dL (65-110) H 01/15/17 10:35 Random Glucose 127 mg/dL (65-105) H 01/13/17 07:45 Calcium 9.3 mg/dL (8.4-10.2) 01/13/17 07:45 Total Bilirubin 0.7 mg/dl (0.2-1.3) 01/12/17 12:00 AST 57 U/L (14-36) H D 01/12/17 12:00 ALT 27 U/L (9-52) 01/12/17 12:00 Alkaline Phosphatase 108 U/L (38-126) 01/12/17 12:00 NT-Pro-B Natriuret Pep 81.7 pg/ml (0-900) 01/12/17 12:00 Total Protein 8.5 G/DL (6.3-8.2) H 01/12/17 12:00 Albumin 4.4 g/dL (3.5-5.0) 01/12/17 12:00 Globulin 4.1 gm/dL (2.2-3.9) H 01/12/17 12:00 Albumin/Globulin Ratio 1.1 (1.0-2.1) 01/12/17 12:00 Venous Blood Potassium 3.9 mmol/L (3.6-5.2) 01/12/17 12:16 Vancomycin Trough 14.3 ug/mL (5.0-10.0) H 01/14/17 13:00 - Hospital Course Hospital Course: The patient is a 71 y/o woman w/ PMHx of HIV (not AIDS), HTN, DM type 2, Hypothyroidism, DVT, PVD, chronic venous insufficiency admitted for cellulitis in both lower extremities. The patient was sent from PCP to ED. Patient was started on IV vancomycin and zosyn for lower extremity cellulitis. The patient had lower extremity U/S which showed no DVT. CBC and CMP were WNL. CXR showed no active disease. Coags was subtherapeutic on admission but now shows therapeutic range for warfarin. The patient's wound culture grew MRSA. The patient's vanc trough was adequate at 14.3. The patient's cellulitis was demarcated which showed recession each day. The patient's right leg pain also improved each day. The patient received 3 days of IV vancomycin and zosyn. The patient is on cilostazol for PVD. The patient's daughter brought HIV medication from home. The patient is clinically improved. The patient has been seen, examined, and deemed medically fit with no contraindication for discharge home. The patient will be discharged on bactrim DS 1 tab PO BID for 7 days. The patient will be notified by the [facility] for follow up with Dr. Cerda. Discharge Exam - Head Exam Head Exam: ATRAUMATIC, NORMOCEPHALIC - ENT Exam ENT Exam: Mucous Membranes Moist - Respiratory Exam Respiratory Exam: Clear to PA & Lateral. absent: Accessory Muscle Use, Chest Wall Tenderness, Decreased Breath Sounds, Prolonged Expiratory Phase, Rales, Rhonchi, Wheezes, Respiratory Distress, Stridor - Cardiovascular Exam Cardiovascular Exam: REGULAR RHYTHM. absent: Tachycardia - GI/Abdominal Exam GI & Abdominal Exam: Normal Bowel Sounds, Soft. absent: Distended, Tenderness - Extremities Exam Extremities exam: normal inspection Additional comments: right leg with chronic venous stasis changes; edema, erythema and warmth significantly receded from marker drawing; mild tenderness to palpation left leg with chronic venous stasis changes, no erythema, no tenderness. faint DP, PT pulses bilaterally - Neurological Exam Neurological exam: Alert, Oriented x3 - Skin Skin Exam: Dry, Intact, Normal Color, Warm Discharge Plan - Discharge Medications Prescriptions: Sulfamethoxazole/Trimethoprim [Bactrim DS 800 mg-160 mg] 1 tab PO BID #14 tab - Follow Up Plan Condition: IMPROVED Disposition: HOME/ ROUTINE Additional Instructions: await call from [facility] tomorrow regarding follow up with Dr. Cerda please take medications as directed please take Bactrim DS 1 tab BID PO for 7 days Referrals: Kev Cerda MD [Primary Care Provider] -
== END 2017-01-15 14:42 | disposition home or self-care (01) | DRG 714 ==
LOC: H.ER 09:57 → INTOOBSV 17:34 → H.ERHOLD 17:34 → H.MEDSURG1 22:00 → OBSVTOIN 01-13 11:18
PROVIDERS: ADMIT Family Medicine; ATTEND Family Medicine
DX: L03.115 Cellulitis of right lower limb (principal); Z21 Asymptomatic human immunodeficiency virus [HIV] infection status; E11.22 Type 2 diabetes mellitus with diabetic chronic kidney disease; E11.51 Type 2 diabetes mellitus with diabetic peripheral angiopathy without gangrene; J44.9 Chronic obstructive pulmonary disease, unspecified; N18.9 Chronic kidney disease, unspecified; E03.9 Hypothyroidism, unspecified; I12.9 Hypertensive chronic kidney disease with stage 1 through stage 4 chronic kidney disease, or unspecified chronic kidney disease; E78.00 Pure hypercholesterolemia, unspecified; E78.5 Hyperlipidemia, unspecified; Z79.01 Long term (current) use of anticoagulants; Z86.718 Personal history of other venous thrombosis and embolism; I87.2 Venous insufficiency (chronic) (peripheral); Z87.891 Personal history of nicotine dependence; K21.9 Gastro-esophageal reflux disease without esophagitis; B95.62 Methicillin resistant Staphylococcus aureus infection as the cause of diseases classified elsewhere

== ENCOUNTER 2017-01-30 20:46 | Inpatient (IN) | payer MEDICAID ==
[2017-01-30 20:46] VITALS: BMI 27.8
--- NOTE | 2017-01-30 22:14 | ED PDOC ---
Lower Extremity Pain/Injury Time Seen by Provider: 01/30/17 22:11 Chief Complaint (Nursing): Lower Extremity Problem/Injury Chief Complaint (Provider): left leg pain History Per: Patient (71 y/o female h/o HIV here with left leg pain increasing x 5 days. Denies any fevers or chills. Patient recently admitted 2 weeks prior for cellulitis and d/c with antibiotics.) Past Medical History Reviewed: Historical Data, Nursing Documentation, Vital Signs Vital Signs: Last Vital Signs Temp 98.1 F 01/30/17 21:05 Pulse 104 H 01/30/17 21:05 Resp 18 01/30/17 21:05 BP 136/69 01/30/17 21:05 Pulse Ox 96 01/30/17 21:05 - Medical History PMH: Anemia, COPD, Diabetes, Deep Vein Thrombosis, Fractures, Gastritis, HIV, HTN, Hypercholesterolemia, Hyperlipidemia, Hyperthyroidism, Hypothyroidism, Kidney Stones, Chronic Kidney Disease, Sexually Transmitted Disease Denies: Asthma, Bronchitis - Surgical History Surgical History: Appendectomy - Family History Family History: States: No Known Family Hx - Immunization History Hx Tetanus Toxoid Vaccination: Yes Hx Influenza Vaccination: Yes Hx Pneumococcal Vaccination: Yes - Home Medications Home Medications: Ambulatory Orders Medication Instructions Recorded Aspirin [Ecotrin] 81 mg PO DAILY 01/12/17 Atorvastatin [Lipitor] 10 mg PO DAILY 01/12/17 Cilostazol [Pletal] 50 mg PO DAILY 01/12/17 Emtricita/rilpivir/tenofovir 1 tab PO HS 01/12/17 [Complera 200 mg-25 mg-300 mg] Enalapril Maleate [Vasotec] 5 mg PO DAILY 01/12/17 Gabapentin [Neurontin] 300 mg PO BID 01/12/17 Levothyroxine [Synthroid] 50 mcg PO DAILY 01/12/17 Multivitamin [Multi-Vitamin Daily] 1 tab PO DAILY 01/12/17 Olopatadine HCl [Pataday] 1 drop EACHEYE BID 01/12/17 Omeprazole 20 mg PO DAILY 01/12/17 Warfarin [Coumadin] 2 mg PO HS 01/12/17 metFORMIN [glucOPHAGE] 500 mg PO BID 01/12/17 Sulfamethoxazole/Trimethoprim 1 tab PO BID #14 tab 01/13/17 [Bactrim DS 800 mg-160 mg] - Allergies Allergies/Adverse Reactions: Allergies Allergy/AdvReac Type Severity Reaction Status Date / Time No Known Allergies Allergy Verified 01/12/17 10:20 Review of Systems ROS Statement: Except As Marked, All Systems Reviewed And Found Negative Physical Exam - Reviewed Nursing Documentation Reviewed: Yes Vital Signs Reviewed: Yes - Physical Exam Appears: Positive for: Well, Non-toxic, No Acute Distress Head Exam: Positive for: ATRAUMATIC, NORMAL INSPECTION, NORMOCEPHALIC Skin: Positive for: Normal Color, Warm, DRY Eye Exam: Positive for: EOMI, Normal appearance, PERRL ENT: Positive for: Normal ENT Inspection Neck: Positive for: Normal, Painless ROM Cardiovascular/Chest: Positive for: Regular Rate, Rhythm Respiratory: Positive for: CNT, Normal Breath Sounds Gastrointestinal/Abdominal: Positive for: Normal Exam, Bowel Sounds, Soft Back: Positive for: Normal Inspection Extremity: Positive for: Normal ROM, Tenderness, Other (erythema right anterior leg. 2+ pulse DP/PT) Neurologic/Psych: Positive for: Alert, Oriented - Laboratory Results Result Diagrams: 01/30/17 22:15 01/30/17 22:15 - ECG O2 Sat by Pulse Oximetry: 96 - Progress ED Course And Treament: MOrphine 4 mg iv x 1 dose duplex lower extremity: neg for dvt Vancomycin 1 gm iv x 1 dose for cellulitis BC x2 drawn d/w family med resident Admit to Dr. Aashish enrique Disposition - Clinical Impression Clinical Impression: Cellulitis - Patient ED Disposition Is Patient to be Admitted: Yes - Disposition Disposition Time: 22:58 Condition: FAIR - Pt Status Changed To: Hospital Disposition Of: Inpatient - Admit Certification Admit to Inpatient:: After my assessment, the patient will require hospitalization for at least two midnights. This is because of the severity of symptoms shown, intensity of services needed, and/or the medical risk in this patient being treated as an outpatient.
[2017-01-30] MEDS ORDERED: Vancomycin 1 g Inj ONE (22:23)
[2017-01-30 22:52] LABS: BASO % 0.7 % (0.0-2.0); EOS # 0.2 K/uL (0.0-0.7); EOS % 5.9 % (0.0-4.0); HEMATOCRIT 35.1 % (34.0-47.0); LYMPH # 1.7 K/uL (1.0-4.3); LYMPH % 49.2 % (20.0-40.0); MEAN CELL VOLUME 88.2 fl (81.0-99.0); MEAN CORPUSCULAR HEMOGLOBIN 28.4 pg (27.0-31.0); MEAN CORPUSCULAR HGB CONC 32.2 g/dL (33.0-37.0); MEAN PLATELET VOLUME 9.4 fl (7.2-11.7); MONO # 0.3 K/uL (0.0-0.8); MONO % 8.5 % (0.0-10.0); NEUT # 1.2 K/uL (1.8-7.0); NEUT % 35.7 % (50.0-75.0); NRBC % 0.1 % (0.0-0.0); RED CELL DISTRIBUTION WIDTH 14.1 % (11.5-14.5); WHITE BLOOD COUNT 3.5 K/uL (4.8-10.8)
[2017-01-30 22:59] LABS: ALB/GLOB RATIO 1.2 (1.0-2.1); ALKALINE PHOSPHATASE 82 U/L (38-126); ALT/SGPT 37 U/L (9-52); AST/SGOT 39 U/L (14-36); BILIRUBIN,TOTAL 0.3 mg/dl (0.2-1.3); BLOOD UREA NITROGEN 12 mg/dl (7-17); CALCIUM 9.9 mg/dL (8.4-10.2); CARBON DIOXIDE 24 mmol/L (22-30); CHLORIDE 101 mmol/L (98-107); GFR AFRICAN-AMERICAN > 60; GLUCOSE,RANDOM 107 mg/dL (65-105); POTASSIUM 4.2 MMOL/L (3.6-5.0); SODIUM 139 mmol/l (132-148); TOTAL PROTEIN 8.5 G/DL (6.3-8.2)
--- NOTE | 2017-01-30 23:31 | US ---
EXAM: US Duplex Right Lower Extremity Veins CLINICAL HISTORY: 71 years old, female; Pain; Leg, lower; Right; Additional info: R/O dvt TECHNIQUE: Real-time ultrasound scan of the veins of the right lower extremity with color Doppler flow, spectral waveform analysis and compression. EXAM DATE/TIME: 01/30/2017 10:10 PM COMPARISON: US - DUPLEX LOWER EXTRM VEIN BILAT 07/14/2015 6:29:48 PM FINDINGS: Deep veins: Common femoral, superficial femoral, popliteal and posterior tibial veins were evaluated. All veins examined are compressible. There are no intraluminal filling defects. There is expected blood flow on Doppler imaging. There is change in waveform with augmentation. Impression: No deep venous thrombosis in the visualized vascular segments of the right lower extremity
--- NOTE | 2017-01-30 23:46 | CP.PCM.HP ---
History of Present Illness - History of Present Illness History of Present Illness: CC: right leg pain x 5 days 71yo F with PMHx HIV, HTN, DM, Hypothyroidism, DVT, PVD, chronic venous insufficiency admitted for cellulitis of right lower extremity. Patient states feeling pain x 5 days but no fevers, chills, nausea, vomiting. Patient states not being able to get follow up appt with PMD until 01/31/17. Pain became unbearable so she came to [facility] today.Tolerating PO, denies current n/v. Denies f /c/chest pain, SOB, palpitations, focal weakness, recent trauma. Recent HIV labs 11/30/16, viral load undetectable, CD4 554. Of note: patient was admitted for similar episode of cellulitis recently 01/13, given IV ABX and discharged 01/15 with PO Bactrim but has not followed up with PMD after discharge. PMHx: HIV, HTN, DM, Hypothyroidism, DVT, PVD, chronic venous insufficiency Allergies: NKDA Meds: per [facility] Taking Complera 200-25-300 MG Tablet Taking Glucophage 500 MG Tablet Taking Levoxyl 50 MCG Tablet Taking Gabapentin 300 MG Capsule Taking Omeprazole 20 MG Tablet Delayed Release Taking Lipitor 10 MG Tablet Taking Coumadin 2 MG Tablet Taking Aricept 5 MG Tablet Taking Strovite Advance 1 Tab Taking Patanol 0.1 % Solution Taking Enalapril Maleate 5 MG Tablet Surgical hx: Appendectomy FHx: Diabetes Mellitus Social Hx: former smoker quited 25 years ago. Denies EtOH, drugs. PMD: Dr Morales ED course: VS stable, afebrile, mild tachycardia, normotensive labs: no leukocytosis, lactic acid WNL BCx pending morphine x 1 vancomycin IV x 1 dose Present on Admission - Present on Admission Any Indicators Present on Admission: Yes History of DVT/PE: Yes Review of Systems - Review of Systems Review of Systems: see hpi Past Patient History - Infectious Disease Hx of Infectious Diseases: None - Past Medical History & Family History Past Medical History?: Yes - Past Social History Smoking Status: Never Smoked - CARDIAC Hx Hypercholesterolemia: Yes Hx Hypertension: Yes - PULMONARY Hx Asthma: No Hx Bronchitis: No Hx Chronic Obstructive Pulmonary Disease (COPD): Yes - NEUROLOGICAL Hx Neurological Disorder: No - HEENT Hx HEENT Problems: No - RENAL Hx Chronic Kidney Disease: Yes Hx Kidney Stones: Yes - ENDOCRINE/METABOLIC Hx Hyperthyroidism: Yes Hx Hypothyroidism: Yes - HEMATOLOGICAL/ONCOLOGICAL Hx Anemia: Yes Hx Human Immunodeficiency Virus (HIV): Yes - INTEGUMENTARY Hx Dermatological Problems: No - MUSCULOSKELETAL/RHEUMATOLOGICAL Hx Fractures: Yes - GASTROINTESTINAL Hx Gastritis: Yes - GENITOURINARY/GYNECOLOGICAL Hx Sexually Transmitted Disorders: Yes - PSYCHIATRIC Hx Psychophysiologic Disorder: No Hx Substance Use: No - SURGICAL HISTORY Hx Appendectomy: Yes - ANESTHESIA Hx Anesthesia: Yes Hx Anesthesia Reactions: No Hx Malignant Hyperthermia: No Meds Allergies/Adverse Reactions: Allergies Allergy/AdvReac Type Severity Reaction Status Date / Time No Known Allergies Allergy Verified 01/12/17 10:20 Physical Exam - Constitutional Appears: Non-toxic, Agitated - Head Exam Head Exam: ATRAUMATIC - Eye Exam Eye Exam: EOMI Pupil Exam: PERRL - ENT Exam ENT Exam: Mucous Membranes Moist - Neck Exam Neck exam: Positive for: Full Rom - Respiratory Exam Respiratory Exam: NORMAL BREATHING PATTERN. absent: Accessory Muscle Use, Rales , Rhonchi, Wheezes - Cardiovascular Exam Cardiovascular Exam: +S1, +S2 - GI/Abdominal Exam GI & Abdominal Exam: Soft. absent: Tenderness - Extremities Exam Extremities exam: Positive for: pedal pulses present Additional comments: right leg: chronic venous insufficiency with superimposed acute erythema, broken skin which is warm to touch, no drainage observed Left leg: chronic venous insufficiency skin discoloration Results - Vital Signs Recent Vital Signs: Last Vital Signs Temp 98.1 F 01/30/17 21:05 Pulse 104 H 01/30/17 21:05 Resp 18 01/30/17 21:05 BP 136/69 01/30/17 21:05 Pulse Ox 96 01/30/17 22:14 - Labs Result Diagrams: 01/30/17 22:15 01/30/17 22:15 Assessment & Plan - Assessment and Plan (Free Text) Plan: 71yo F with PMHx HIV, HTN, DM, Hypothyroidism, DVT, PVD, chronic venous insufficiency admitted for cellulitis of right lower extremity. Right lower extremity Cellulitis Of note: patient was admitted for similar episode of cellulitis recently 01/13, given IV ABX and discharged 01/15 with PO Bactrim but has not followed up with PMD after discharge. VS stable, afebrile, mild tachycardia, normotensive labs: no leukocytosis, lactic acid WNL BCx pending morphine x 1 vancomycin IV x 1 dose admit to med/surg c/w Vancomycin 1 gm IV daily pain control follow BCx repeat labs in AM Hx of DVT c/w coumadin 2 mg Daily coags ordered on admission HTN c/w enalapril DM c/w metformin 500 BID Hypothyroidism c/w synthroid HIV Recent HIV labs 11/30/16, viral load undetectable, CD4 554 c/w complera Dementia c/w Aricept PPx DVT - anticoagulated with coumadin Diet diabetic, HH
[2017-01-31 01:00] LABS: PARTIAL THROMBOPLASTIN TIME 29.5 SECONDS (23.3-32.5)
[2017-01-31] MEDS: Levothyroxine 50 MCG TAB PO SCH (05:33)
[2017-01-31 07:21] LABS: ALB/GLOB RATIO 1.2 (1.0-2.1); ALKALINE PHOSPHATASE 78 U/L (38-126); ALT/SGPT 33 U/L (9-52); AST/SGOT 30 U/L (14-36); BILIRUBIN,TOTAL 0.3 mg/dl (0.2-1.3); BLOOD UREA NITROGEN 10 mg/dl (7-17); CALCIUM 9.7 mg/dL (8.4-10.2); CARBON DIOXIDE 27 mmol/L (22-30); CHLORIDE 100 mmol/L (98-107); GFR AFRICAN-AMERICAN > 60; GLUCOSE,RANDOM 128 mg/dL (65-105); POTASSIUM 4.3 MMOL/L (3.6-5.0); SODIUM 138 mmol/l (132-148); TOTAL PROTEIN 7.3 G/DL (6.3-8.2)
[2017-01-31] MEDS: Multivitamin With Minerals Tab PO SCH (08:52)
[2017-01-31] MEDS: Pantoprazole 40 mg EC Tab PO SCH (08:52)
[2017-01-31] MEDS ORDERED: Patient's Own Med (Multivitamin [Multi-Vitamin Daily] 1 TAB) PO SCH (09:00)
--- NOTE | 2017-01-31 09:48 | CP.PCM.PN ---
Subjective - Date & Time of Evaluation Date of Evaluation: 01/31/17 Time of Evaluation: 09:15 - Subjective Subjective: 71 y/o F admitted for R/leg cellulitis seen at bedside in not acute distress. Patient c/o mild pain on the site of cellulitis and states swelling has improved since admission. Denies CP, SOB, palpitations, paresthesias. Patient states she finished PO abx at home when she was DC from hosp 2 weeks ago. Patient states she has been compliant with all her home meds. Objective - Vital Signs/Intake and Output Vital Signs (last 24 hours): Temp Pulse Resp BP Pulse Ox 97.8 F 70 20 148/67 96 01/31/17 08:40 01/31/17 08:40 01/31/17 08:40 01/31/17 08:40 01/31/17 08:40 - Medications Medications: Current Medications Acetaminophen (Tylenol 325mg Tab) 650 mg PO Q6 PRN PRN Reason: Fever >100.4 F Last Admin: 01/31/17 09:06 Dose: 650 mg Aspirin (Ecotrin) 81 mg PO DAILY [facility] Last Admin: 01/31/17 08:52 Dose: 81 mg Atorvastatin Calcium (Lipitor) 10 mg PO DAILY [facility] Last Admin: 01/31/17 08:52 Dose: 10 mg Donepezil HCl (Aricept) 5 mg PO [facility] Last Admin: 01/31/17 01:42 Dose: 5 mg Enalapril Maleate (Vasotec) 5 mg PO DAILY [facility] Last Admin: 01/31/17 08:53 Dose: 5 mg Gabapentin (Neurontin) 300 mg PO BID [facility] Last Admin: 01/31/17 08:52 Dose: 300 mg Home Med (Emtricita/Rilpivir/Tenofovir) 1 tab PO [facility] Home Med (Olopatadine Hcl [Pataday]) 1 drop EACHEYE BID [facility] Vancomycin HCl 1 gm/ Sodium (Chloride) 250 mls @ 166.667 mls/hr IVPB DAILY [facility] Last Admin: 01/31/17 08:53 Dose: 166.667 mls/hr Levothyroxine Sodium (Synthroid) 50 mcg PO DAILY@0630 [facility] Last Admin: 01/31/17 05:33 Dose: 50 mcg Metformin HCl (Glucophage) 500 mg PO BID [facility] Last Admin: 01/31/17 08:52 Dose: 500 mg Morphine Sulfate (Morphine) 2 mg IVP Q4 PRN PRN Reason: Pain, severe (8-10) Last Admin: 01/31/17 06:23 Dose: 2 mg Multivitamins/Minerals (Therapeutic-M Tab) 1 tab PO DAILY [facility] Last Admin: 01/31/17 08:52 Dose: 1 tab Ondansetron HCl (Zofran Inj) 4 mg IVP Q6 PRN PRN Reason: Nausea/Vomiting Pantoprazole Sodium (Protonix Ec Tab) 40 mg PO DAILY [facility] Last Admin: 01/31/17 08:52 Dose: 40 mg Warfarin Sodium (Coumadin) 2 mg PO HS [facility] PRN Reason: Protocol - Labs Labs: 01/31/17 05:35 PT 12.0 SECONDS (9.6-11.2) H 01/31/17 00:07 INR 1.15 (0.92-1.08) H 01/31/17 00:07 APTT 29.5 SECONDS (23.3-32.5) 01/31/17 00:07 - Constitutional Appears: Non-toxic, No Acute Distress - Head Exam Head Exam: NORMAL INSPECTION - Eye Exam Eye Exam: PERRL - ENT Exam ENT Exam: Mucous Membranes Moist - Respiratory Exam Respiratory Exam: Clear to Ausculation Bilateral, NORMAL BREATHING PATTERN. absent: Rales, Wheezes - Cardiovascular Exam Cardiovascular Exam: REGULAR RHYTHM, +S1, +S2. absent: Murmur - GI/Abdominal Exam GI & Abdominal Exam: Soft, Normal Bowel Sounds. absent: Distended, Tenderness - Extremities Exam Extremities Exam: Normal Capillary Refill, Pedal Edema. absent: Calf Tenderness Additional comments: b/l mild LE edema with cellulitis - Neurological Exam Neurological Exam: Alert, Awake, Oriented x3 - Psychiatric Exam Psychiatric exam: Normal Affect, Normal Mood - Skin Skin Exam: Warm Assessment and Plan - Assessment and Plan (Free Text) Assessment: 71yo F with PMHx HIV, HTN, DM, Hypothyroidism, DVT, PVD, chronic venous insufficiency admitted for cellulitis of right lower extremity. Right lower extremity Cellulitis VS stable, afebrile labs: no leukocytosis, lactic acid WNL BCx pending c/w Vancomycin 1 gm IV daily f/u CBC am LE US no DVT On Gabapentin 300mg BID Hx of DVT coumadin 2 mg Daily INR 1.15 HTN enalapril 5mg daily DM metformin 500 BID for now Hypothyroidism synthroid 50mcg daily HIV w/o AIDS Recent HIV labs 11/30/16, viral load undetectable, CD4 554 complera 1 tab HS Dementia c/w Aricept PPx DVT - anticoagulated with coumadin
--- NOTE | 2017-01-31 12:12 | PQF HIV ---
Dr. Clay Please clarify the status of patient's HIV: see the "Physician's Response" section below. H and P: HIV ;Recent HIV labs 11/30/16, viral load undetectable, CD4 554 ;c/w complera This form is a permanent part of the medical record Clarification of your documentation is requested to better reflect the severity of illness and intensity of treatment of your patient. Indicators present [] Documented diagnosis of HIV [] CD4 count: [] [] Other: [] Location in the medical record that reflects the above clinical findings: [] Other Treatment Provided: [] PHYSICIAN'S RESPONSE If possible, based on your medical judgment, please clarify the clinical classification for this patient. [] Asymptomatic HIV Status: without any history of (or current) AIDS Defining Illnesses of HIV-Related Illness [] AIDS: Meets the current CDC Definition of AIDS HIV-Infected persons who HAVE OR HAVE HAD less than 200 CD4+ T-lymphocytes/uL or CD4+ T-lymphocyte percentage of total lymphocytes of less than 14, AND/OR an AIDS-Defining or HIV-Related Disease. See reverse side for examples. Per CDC publication Vol 60 RR-17 : Relating to the classification HIV Infection , once a patient is diagnosed with AIDS the diagnosis still stands even if, after treatment, the CD4+ T cell count rises above 200 per uL of blood or other AIDS-defining illnesses are cured. [] If unable to determine, please check the box, sign and date. In responding to this query, please exercise your independent professional judgment. The fact that a question is asked does not imply that any particular answer is desired or expected. Thank you for your clarification on this documentation. If you have any questions please call. * Thank you, Lanie Boyd RN BSN ext. #[phone] The following are AIDS-Defining Illnesses or HIV-Related Diseases: Candidiasis of bronchi, trachea, or lungs Candidiasis, esophageal Cervical cancer, invasive * Coccidioidomycosis, disseminated or extrapulmonary Cryptococcosis, extrapulmonary Cryptosporidiosis, chronic intestinal (greater than 1 month's duration) Cytomegalovirus disease (other than liver, spleen, or nodes) Cytomegalovirus retinitis (with loss of vision) Encephalopathy, HIV-related Herpes simplex: chronic ulcer(s) (greater than 1 month's duration); or bronchitis, pneumonitis, or esophagitis Histoplasmosis, disseminated or extrapulmonary Isosporiasis, chronic intestinal (greater than 1 month's duration) Kaposi's sarcoma Lymphoma, Burkitt's (or equivalent term) Lymphoma, immunoblastic (or equivalent term) Lymphoma, primary, of brain Mycobacterium avium complex or M. kansasii, disseminated or extrapulmonary Mycobacterium tuberculosis, any site (pulmonary * or extrapulmonary) Mycobacterium, other species or unidentified species, disseminated or extrapulmonary Pneumocystis carinii pneumonia Pneumonia, recurrent * Progressive multifocal leukoencephalopathy Salmonella septicemia, recurrent Toxoplasmosis of brain Wasting syndrome due to HIV MTDD
[2017-01-31] MEDS: Olopatadine 0.1% Opht SOLN OU SCH ×2 (13:52→16:49)
[2017-01-31] MEDS ORDERED: Emtricitabine/rilpivirine/tenofovir 1 TAB PO SCH (22:00)
[2017-02-01] MEDS: Levothyroxine 50 MCG TAB PO SCH (06:31)
[2017-02-01 07:16] LABS: BASO % 0.6 % (0.0-2.0); EOS # 0.2 K/uL (0.0-0.7); EOS % 5.9 % (0.0-4.0); HEMATOCRIT 34.9 % (34.0-47.0); LYMPH # 1.5 K/uL (1.0-4.3); LYMPH % 53.3 % (20.0-40.0); MEAN CELL VOLUME 87.5 fl (81.0-99.0); MEAN CORPUSCULAR HEMOGLOBIN 28.3 pg (27.0-31.0); MEAN CORPUSCULAR HGB CONC 32.4 g/dL (33.0-37.0); MEAN PLATELET VOLUME 9.2 fl (7.2-11.7); MONO # 0.3 K/uL (0.0-0.8); NEUT # 0.8 K/uL (1.8-7.0); NEUT % 30.2 % (50.0-75.0); NRBC % 0.1 % (0.0-0.0); RED CELL DISTRIBUTION WIDTH 14.3 % (11.5-14.5); WHITE BLOOD COUNT 2.7 K/uL (4.8-10.8)
[2017-02-01 07:40] LABS: PARTIAL THROMBOPLASTIN TIME 27.3 SECONDS (23.3-32.5)
[2017-02-01 07:48] VITALS: PULSE 70
--- NOTE | 2017-02-01 07:57 | CP.PCM.CON ---
History of Present Illness - History of Present Illness History of Present Illness: PODIATRY CONSULT NOTE 71 year old female seen at bedside concerning bilateral leg pain and swelling. Pt is known to attending Dr. Wolfe as she has been seen in [facility] for chronic right leg venous stasis ulcerations, last seen 06/19/16. Pt was recently discharged from hospital 2 week prior for similar issue. Completed prescribed abx regimen. Pt reports she had noticed more redness to right leg compared to left. Pt admits to feeling feverish recent, denies recent cp/sob/n/v /c. Past Patient History - Infectious Disease Hx of Infectious Diseases: None - Past Medical History & Family History Past Medical History?: Yes - Past Social History Smoking Status: Former Smoker - CARDIAC Hx Cardiac Disorders: Yes Hx Hypercholesterolemia: Yes Hx Hypertension: Yes - PULMONARY Hx Respiratory Disorders: Yes Hx Asthma: No Hx Bronchitis: No Hx Chronic Obstructive Pulmonary Disease (COPD): Yes - NEUROLOGICAL Hx Neurological Disorder: No - HEENT Hx HEENT Problems: No - RENAL Hx Chronic Kidney Disease: Yes Hx Kidney Stones: Yes - ENDOCRINE/METABOLIC Hx Endocrine Disorders: Yes Hx Hyperthyroidism: Yes Hx Hypothyroidism: Yes - HEMATOLOGICAL/ONCOLOGICAL Hx Blood Disorders: Yes Hx Anemia: Yes Hx Human Immunodeficiency Virus (HIV): Yes - INTEGUMENTARY Hx Dermatological Problems: No - MUSCULOSKELETAL/RHEUMATOLOGICAL Hx Musculoskeletal Disorders: Yes Hx Falls: Yes Other/Comment: Left knee fx - GASTROINTESTINAL Hx Gastrointestinal Disorders: Yes Hx Gastritis: Yes - GENITOURINARY/GYNECOLOGICAL Hx Genitourinary Disorders: Yes Hx Sexually Transmitted Disorders: Yes - PSYCHIATRIC Hx Psychophysiologic Disorder: No Hx Substance Use: No - SURGICAL HISTORY Hx Surgeries: Yes Hx Appendectomy: Yes - ANESTHESIA Hx Anesthesia: Yes Hx Anesthesia Reactions: No Hx Malignant Hyperthermia: No Meds Allergies/Adverse Reactions: Allergies Allergy/AdvReac Type Severity Reaction Status Date / Time No Known Allergies Allergy Verified 01/12/17 10:20 - Medications Medications: Current Medications Acetaminophen (Tylenol 325mg Tab) 650 mg PO Q6 PRN PRN Reason: Fever >100.4 F Last Admin: 01/31/17 09:06 Dose: 650 mg Aspirin (Ecotrin) 81 mg PO DAILY [facility] Last Admin: 01/31/17 08:52 Dose: 81 mg Atorvastatin Calcium (Lipitor) 10 mg PO DAILY [facility] Last Admin: 01/31/17 08:52 Dose: 10 mg Donepezil HCl (Aricept) 5 mg PO HS [facility] Last Admin: 01/31/17 21:35 Dose: 5 mg Enalapril Maleate (Vasotec) 5 mg PO DAILY [facility] Last Admin: 01/31/17 08:53 Dose: 5 mg Gabapentin (Neurontin) 300 mg PO BID [facility] Last Admin: 01/31/17 16:49 Dose: 300 mg Hydrocortisone (Cortizone 1% Cream) 1 applic TOP BID [facility] Vancomycin HCl 1 gm/ Sodium (Chloride) 250 mls @ 166.667 mls/hr IVPB DAILY [facility] Last Admin: 01/31/17 08:53 Dose: 166.667 mls/hr Levothyroxine Sodium (Synthroid) 50 mcg PO DAILY@0630 [facility] Last Admin: 02/01/17 06:31 Dose: 50 mcg Metformin HCl (Glucophage) 500 mg PO BID [facility] Last Admin: 01/31/17 16:48 Dose: 500 mg Morphine Sulfate (Morphine) 2 mg IVP Q4 PRN PRN Reason: Pain, severe (8-10) Last Admin: 01/31/17 23:57 Dose: 2 mg Multivitamins/Minerals (Therapeutic-M Tab) 1 tab PO DAILY [facility] Last Admin: 01/31/17 08:52 Dose: 1 tab Olopatadine HCl (Patanol 0.1% Opht Soln) 1 drop OU BID [facility] Last Admin: 01/31/17 16:49 Dose: 1 unit Ondansetron HCl (Zofran Inj) 4 mg IVP Q6 PRN PRN Reason: Nausea/Vomiting Pantoprazole Sodium (Protonix Ec Tab) 40 mg PO DAILY [facility] Last Admin: 01/31/17 08:52 Dose: 40 mg Warfarin Sodium (Coumadin) 2 mg PO [facility] PRN Reason: Protocol Last Admin: 01/31/17 22:06 Dose: 2 mg Physical Exam - Constitutional Appears: Well, Non-toxic, No Acute Distress - Extremities Exam Additional comments: Lower extremity focused. VASC: DP and PT pulses are fully palpable bilaterally, graded 1/4 secondary to edema. +1 edema noted to extending from calf to level of ankle joint bilaterally. Rubor on dependency noted bilaterally, however blanching on elevation and venous egress noted only to left leg. Blanchable erythema on compression only noted to left leg, non-blanchable erythema noted to right leg. Temperature runs warmer on right leg compared to left, outside of normal limits. Negative calf tenderness upon compression bilaterally. DERM: Nails are normotrophic and well pedicured. No inter-digital macerations noted bilaterally. No mal-odor noted. Right lateral leg pre-ulcerative lesion noted, with stable overlying crust noted. Right leg patch of hyperpigmentation along anterior and lateral leg with dry dyshutrotic peeling skin noted. . Neuro: Protective sensation grossly intact. MUSCK: No tenderness upon palpation. Prominent medial 1st metatarsal lee ann prominece noted with moderate abducted hallux deformity noted bilaterally. Pedal muscle strength in all 4 major pedal muscle groups is graded 5/5. - Neurological Exam Neurological exam: Alert, Oriented x3 - Psychiatric Exam Psychiatric exam: Normal Affect, Normal Mood Results - Vital Signs Recent Vital Signs: Last Vital Signs Temp 97.9 F 02/01/17 07:48 Pulse 70 02/01/17 07:48 Resp 16 02/01/17 07:48 BP 131/74 02/01/17 07:48 Pulse Ox 97 02/01/17 07:48 - Labs Result Diagrams: 02/01/17 05:55 01/31/17 05:35 Labs: Laboratory Results - last 24 hr 01/31/17 01/31/17 02/01/17 16:55 21:30 05:55 WBC 2.7 L RBC 3.99 Hgb 11.3 L Hct 34.9 MCV 87.5 MCH 28.3 MCHC 32.4 L RDW 14.3 Plt Count 218 MPV 9.2 Neut % (Auto) 30.2 L Lymph % (Auto) 53.3 H Arroyo % (Auto) 10.0 Eos % (Auto) 5.9 H Baso % (Auto) 0.6 Neut # 0.8 L Lymph # 1.5 Arroyo # 0.3 Eos # 0.2 Baso # 0.0 PT INR APTT POC Glucose (mg/dL) 119 H 116 H 02/01/17 05:55 WBC RBC Hgb Hct MCV MCH MCHC RDW Plt Count MPV Neut % (Auto) Lymph % (Auto) Arroyo % (Auto) Eos % (Auto) Baso % (Auto) Neut # Lymph # Arroyo # Eos # Baso # PT 12.0 H INR 1.15 H APTT 27.3 POC Glucose (mg/dL) Assessment & Plan - Assessment and Plan (Free Text) Assessment: 71 year old HIV+ pt female seen concerning 1) Right leg pre-ulcerative lesion w / resolving cellulits, & chronic venous insufficiency 2) Left leg venous insufficiency 3) Bunion deformities bilaterally. Plan: Pt evaluated and treated. Charts, labs, and vitals reviewed. Afebrile, Leukopenia-- WBC= 2.7K Discussed with attending Dr. Wolfe, who endoresed the following plan. Rigth foot cleansed with sterile saline, dressed with xeroform, DSD, & NICOLÁS wrap compression. Left leg dressed with NICOLÁS wrap compression. Recommending potential ID consultation as pt is immunocompromised in the presence of resolving cellulits. Continue IV Vanco. podiatry will follow while inhouse. - Date & Time Date: 02/01/17 Time: 07:40
[2017-02-01] MEDS: Olopatadine 0.1% Opht SOLN OU SCH ×2 (08:49→17:05)
[2017-02-01] MEDS: Pantoprazole 40 mg EC Tab PO SCH (08:50)
[2017-02-01] MEDS: Multivitamin With Minerals Tab PO SCH (08:50)
--- NOTE | 2017-02-01 15:26 | CP.PCM.PN ---
Subjective - Date & Time of Evaluation Date of Evaluation: 02/01/17 Time of Evaluation: 08:10 - Subjective Subjective: 71 y/o F admitted for R/leg cellulitis seen at bedside in not acute distress. Patient c/o mild pain on the site of cellulitis and states swelling has improved since admission but has persistent redness. Denies CP, SOB, palpitations, paresthesias. Patient was evaluated by Podiatry today and will be evaluated by ID. Objective - Vital Signs/Intake and Output Vital Signs (last 24 hours): Temp Pulse Resp BP Pulse Ox 97.9 F 70 16 131/74 97 02/01/17 07:48 02/01/17 07:48 02/01/17 07:48 02/01/17 07:48 02/01/17 07:48 - Medications Medications: Current Medications Acetaminophen (Tylenol 325mg Tab) 650 mg PO Q6 PRN PRN Reason: Fever >100.4 F Last Admin: 01/31/17 09:06 Dose: 650 mg Aspirin (Ecotrin) 81 mg PO DAILY [facility] Last Admin: 02/01/17 08:48 Dose: 81 mg Atorvastatin Calcium (Lipitor) 10 mg PO DAILY [facility] Last Admin: 02/01/17 08:49 Dose: 10 mg Donepezil HCl (Aricept) 5 mg PO HS [facility] Last Admin: 01/31/17 21:35 Dose: 5 mg Enalapril Maleate (Vasotec) 5 mg PO DAILY [facility] Last Admin: 02/01/17 08:51 Dose: 5 mg Gabapentin (Neurontin) 300 mg PO BID [facility] Last Admin: 02/01/17 08:49 Dose: 300 mg Hydrocortisone (Cortizone 1% Cream) 1 applic TOP BID [facility] Last Admin: 02/01/17 08:46 Dose: 1 applic Vancomycin HCl 1 gm/ Sodium (Chloride) 250 mls @ 166.667 mls/hr IVPB DAILY [facility] Last Admin: 02/01/17 08:50 Dose: 166.667 mls/hr Levothyroxine Sodium (Synthroid) 50 mcg PO DAILY@0630 [facility] Last Admin: 02/01/17 06:31 Dose: 50 mcg Metformin HCl (Glucophage) 500 mg PO BID [facility] Last Admin: 02/01/17 08:48 Dose: 500 mg Morphine Sulfate (Morphine) 2 mg IVP Q4 PRN PRN Reason: Pain, severe (8-10) Last Admin: 02/01/17 09:32 Dose: 2 mg Multivitamins/Minerals (Therapeutic-M Tab) 1 tab PO DAILY [facility] Last Admin: 02/01/17 08:50 Dose: 1 tab Olopatadine HCl (Patanol 0.1% Opht Soln) 1 drop OU BID [facility] Last Admin: 02/01/17 08:49 Dose: 1 unit Ondansetron HCl (Zofran Inj) 4 mg IVP Q6 PRN PRN Reason: Nausea/Vomiting Pantoprazole Sodium (Protonix Ec Tab) 40 mg PO DAILY [facility] Last Admin: 02/01/17 08:50 Dose: 40 mg Warfarin Sodium (Coumadin) 2 mg PO HS [facility] PRN Reason: Protocol Last Admin: 01/31/17 22:06 Dose: 2 mg - Labs Labs: 02/01/17 05:55 01/31/17 05:35 PT 12.0 SECONDS (9.6-11.2) H 02/01/17 05:55 INR 1.15 (0.92-1.08) H 02/01/17 05:55 APTT 27.3 SECONDS (23.3-32.5) 02/01/17 05:55 - Constitutional Appears: Non-toxic, No Acute Distress - Head Exam Head Exam: NORMAL INSPECTION - Eye Exam Eye Exam: PERRL - ENT Exam ENT Exam: Mucous Membranes Moist - Respiratory Exam Respiratory Exam: Clear to Ausculation Bilateral, NORMAL BREATHING PATTERN - Cardiovascular Exam Cardiovascular Exam: REGULAR RHYTHM, +S1, +S2. absent: Gallop - GI/Abdominal Exam GI & Abdominal Exam: Soft, Normal Bowel Sounds - Extremities Exam Extremities Exam: Tenderness (R/LE tender to light touch, redness, and cracked skin) - Neurological Exam Neurological Exam: Alert, Awake, Oriented x3 - Psychiatric Exam Psychiatric exam: Normal Affect, Normal Mood - Skin Skin Exam: Warm Assessment and Plan - Assessment and Plan (Free Text) Assessment: 71yo F with PMHx HIV, HTN, DM, Hypothyroidism, DVT, PVD, chronic venous insufficiency admitted for cellulitis of right lower extremity. Right lower extremity Cellulitis VS stable, afebrile labs: leukopenia, lactic acid WNL BCx pending c/w Vancomycin 1 gm IV daily LE US no DVT On Gabapentin 300mg BID Podiatry consulted (Dr Wolfe) ID consulted (Dr Singh) Hx of DVT LE US no DVT coumadin 2 mg Daily INR 1.15 HTN enalapril 5mg daily DM metformin 500 BID for now accuchecks Hypothyroidism synthroid 50mcg daily HIV w/o AIDS Recent HIV labs 11/30/16, viral load undetectable, CD4 554 complera 1 tab HS Dementia c/w Aricept PPx DVT - anticoagulated with coumadin
[2017-02-01 16:29] VITALS: BP 125/64; RESP 18; TEMP 98.3; O2SAT 96
[2017-02-01] MEDS ORDERED: Cilostazol 100 mg Tab UD PO SCH (17:00)
[2017-02-01] MEDS ORDERED: EMTRICITABINE PO SCH (22:00)
[2017-02-01] MEDS ORDERED: RILPIVIRINE PO SCH (22:00)
[2017-02-01] MEDS ORDERED: TENOFOVIR PO SCH (22:00)
--- NOTE | 2017-02-02 22:05 | CP.PCM.DIS ---
Provider - Provider Date of Admission: 01/30/17 22:58 Attending physician: Malia Clay MD Primary care physician: Dr Morales Consults: Podiatry Time Spent in preparation of Discharge (in minutes): 30 Diagnosis - Discharge Diagnosis (1) Cellulitis of right lower extremity Status: Acute Comment: improved, cont PO abx as outpatient (2) HIV (human immunodeficiency virus infection) Status: Chronic Comment: Stable Hospital Course - Lab Results Lab Results: Most Recent Lab Values WBC 2.7 K/uL (4.8-10.8) L 02/01/17 05:55 RBC 3.99 Mil/uL (3.80-5.20) 02/01/17 05:55 Hgb 11.3 g/dL (12.0-16.0) L 02/01/17 05:55 Hct 34.9 % (34.0-47.0) 02/01/17 05:55 MCV 87.5 fl (81.0-99.0) 02/01/17 05:55 MCH 28.3 pg (27.0-31.0) 02/01/17 05:55 MCHC 32.4 g/dL (33.0-37.0) L 02/01/17 05:55 RDW 14.3 % (11.5-14.5) 02/01/17 05:55 Plt Count 218 K/uL (130-400) 02/01/17 05:55 MPV 9.2 fl (7.2-11.7) 02/01/17 05:55 Neut % (Auto) 30.2 % (50.0-75.0) L 02/01/17 05:55 Lymph % (Auto) 53.3 % (20.0-40.0) H 02/01/17 05:55 [place] % (Auto) 10.0 % (0.0-10.0) 02/01/17 05:55 Eos % (Auto) 5.9 % (0.0-4.0) H 02/01/17 05:55 Baso % (Auto) 0.6 % (0.0-2.0) 02/01/17 05:55 Neut # 0.8 K/uL (1.8-7.0) L 02/01/17 05:55 Lymph # 1.5 K/uL (1.0-4.3) 02/01/17 05:55 [place] # 0.3 K/uL (0.0-0.8) 02/01/17 05:55 Eos # 0.2 K/uL (0.0-0.7) 02/01/17 05:55 Baso # 0.0 K/uL (0.0-0.2) 02/01/17 05:55 PT 12.0 SECONDS (9.6-11.2) H 02/01/17 05:55 INR 1.15 (0.92-1.08) H 02/01/17 05:55 APTT 27.3 SECONDS (23.3-32.5) 02/01/17 05:55 Sodium 138 mmol/l (132-148) 01/31/17 05:35 Potassium 4.3 MMOL/L (3.6-5.0) 01/31/17 05:35 Chloride 100 mmol/L (98-107) 01/31/17 05:35 Carbon Dioxide 27 mmol/L (22-30) 01/31/17 05:35 Anion Gap 15 (10-20) 01/31/17 05:35 BUN 10 mg/dl (7-17) 01/31/17 05:35 Creatinine 0.8 mg/dL (0.7-1.2) 01/31/17 05:35 Est GFR ( Amer) > 60 01/31/17 05:35 Est GFR (Non-Af Amer) > 60 01/31/17 05:35 POC Glucose (mg/dL) 161 mg/dL (65-110) H 02/02/17 15:35 Random Glucose 128 mg/dL (65-105) H 01/31/17 05:35 Lactic Acid 1.4 MMOL/L (0.7-2.1) 01/30/17 22:15 Calcium 9.7 mg/dL (8.4-10.2) 01/31/17 05:35 Total Bilirubin 0.3 mg/dl (0.2-1.3) 01/31/17 05:35 AST 30 U/L (14-36) 01/31/17 05:35 ALT 33 U/L (9-52) 01/31/17 05:35 Alkaline Phosphatase 78 U/L (38-126) 01/31/17 05:35 Total Protein 7.3 G/DL (6.3-8.2) 01/31/17 05:35 Albumin 4.0 g/dL (3.5-5.0) 01/31/17 05:35 Globulin 3.3 gm/dL (2.2-3.9) 01/31/17 05:35 Albumin/Globulin Ratio 1.2 (1.0-2.1) 01/31/17 05:35 - Hospital Course Hospital Course: 71 y/o F with PMhx of HIV without Aids presented to ED for R/leg cellulitis. Patient was admitted and treatment with IV abx was started. Podiatry was consulted and wound care daily was done. WBC WNL, afebrile, VS stable. Patient improved after 2 days IV abx and decided to DC home with F/U with PMD and center and to finish abx treatment as outpatient PO. Discharge meds: Taking Complera 200-25-300 MG Tablet Taking Glucophage 500 MG Tablet Taking Levoxyl 50 MCG Tablet Taking Gabapentin 300 MG Capsule Taking Omeprazole 20 MG Tablet Delayed Release Taking Lipitor 10 MG Tablet Taking Coumadin 2 MG Tablet Taking Aricept 5 MG Tablet Taking Strovite Advance 1 Tab Taking Patanol 0.1 % Solution Taking Enalapril Maleate 5 MG Tablet Keflex 250mg Daily Discharge Exam - Head Exam Head Exam: NORMAL INSPECTION - Eye Exam Eye Exam: PERRL - Respiratory Exam Respiratory Exam: Clear to PA & Lateral, NORMAL BREATHING PATTERN, UNREMARKABLE - Cardiovascular Exam Cardiovascular Exam: REGULAR RHYTHM, +S1, +S2. absent: Systolic Murmur - GI/Abdominal Exam GI & Abdominal Exam: Normal Bowel Sounds, Unremarkable - Extremities Exam Additional comments: R/LE redness and swelling improved since admission. Wound covered with dressing , clean and dry - Neurological Exam Neurological exam: Alert, Oriented x3 Discharge Plan - Follow Up Plan Condition: IMPROVED Disposition: HOME/ ROUTINE
== END 2017-02-02 19:20 | disposition home or self-care (01) | DRG 710 ==
LOC: H.ER 20:46 → H.ERHOLD 22:58 → H.MEDSURG1 01-31 01:05
PROVIDERS: ADMIT Family Medicine Geriatric Medicine; ATTEND Family Medicine Geriatric Medicine
DX: L03.115 Cellulitis of right lower limb (principal); F03.90 Unspecified dementia, unspecified severity, without behavioral disturbance, psychotic disturbance, mood disturbance, and anxiety; Z21 Asymptomatic human immunodeficiency virus [HIV] infection status; E11.22 Type 2 diabetes mellitus with diabetic chronic kidney disease; J44.9 Chronic obstructive pulmonary disease, unspecified; N18.9 Chronic kidney disease, unspecified; E03.9 Hypothyroidism, unspecified; E78.00 Pure hypercholesterolemia, unspecified; E78.5 Hyperlipidemia, unspecified; I12.9 Hypertensive chronic kidney disease with stage 1 through stage 4 chronic kidney disease, or unspecified chronic kidney disease; I87.2 Venous insufficiency (chronic) (peripheral); Z87.891 Personal history of nicotine dependence; M21.612 Bunion of left foot; M21.611 Bunion of right foot; L98.9 Disorder of the skin and subcutaneous tissue, unspecified; Z86.718 Personal history of other venous thrombosis and embolism; K29.70 Gastritis, unspecified, without bleeding

== ENCOUNTER 2019-01-28 08:10 | Day surgery (SDC) | payer MEDICARE, MEDICAID ==
[2019-01-28] MEDS ORDERED: Lactated Ringer's 500 ML IV ONE (08:27)
[2019-01-28 08:46] VITALS: BMI 26.4
[2019-01-28] MEDS ORDERED: Propofol 10 mg/ml Inj (20 ML) ONE (09:56)
[2019-01-28 10:20] VITALS: TEMP 97.2
[2019-01-28 10:43] VITALS: BP 104/53; PULSE 55; RESP 15; O2SAT 100
== END 2019-01-28 11:23 | disposition home or self-care (01) ==
LOC: H.ENDO 08:10
PROVIDERS: ATTEND Internal Medicine Gastroenterology
DX: K30 Functional dyspepsia (principal); B37.81 Candidal esophagitis; K44.9 Diaphragmatic hernia without obstruction or gangrene; K31.89 Other diseases of stomach and duodenum; E11.9 Type 2 diabetes mellitus without complications; Z21 Asymptomatic human immunodeficiency virus [HIV] infection status; I10 Essential (primary) hypertension; K29.50 Unspecified chronic gastritis without bleeding
CPT/HCPCS: 43239; 82948; 88305; 88342; J2001; J2704; J7120